=== PATIENT | male | born 1935 | race Caucasian/White ===

== ENCOUNTER 2019-10-02 18:57 | Observation (INO) | payer MEDICARE, OTHER ==
[2019-10-02] MEDS ORDERED: Dextrose 50% Abboject 50 ML SYRINGE ONE (19:26)
[2019-10-02 19:32] LABS: #Eosinphils 0.1 thou/uL (0.0-0.7); #Lymphocytes 1.9 thou/uL (1.20-3.40); #Monocytes 0.9 thou/uL (0.11-0.59); #Neutrophils 5.7 thou/uL (1.40-6.50); %Basophils 0.5 % (0.0-1.0); %Eosinophils 1.6 % (0.0-10.0); %Lymphocytes 21.7 % (21.0-51.0); %Monocytes 10.3 % (0.0-10.0); %Neutrophils 65.9 % (42.0-75.0); Mean Corpuscular HGB CONC 33.5 g/dL (32.0-36.0); Mean Corpuscular Hemoglobin 31.6 pg (27.0-31.0); Mean Corpuscular Volume 94.3 fL (78.0-98.0); Mean Platelet Volume 7.9 fL (7.4-10.4); Platelet Count 175 thou/uL (130-400); RBC Distribution Width 12.3 % (11.5-14.5); Red Blood Cell (RBC) Count 4.11 mill/uL (4.70-6.10); White Blood Cell (WBC) Count 8.6 thou/uL (4.8-10.8)
[2019-10-02 19:54] LABS: ALT (SGPT) 31 U/L (8-55); AST (SGOT) 38 U/L (5-34); Albumin 4.1 g/dL (3.4-4.8); Alkaline Phosphatase 91 U/L (40-110); Anion Gap 14 mmol/L (10-20); BUN (Urea Nitrogen) 35 mg/dL (8.4-25.7); Bilirubin, Total 0.4 mg/dL (0.2-1.2); Calc. Creatinine Clearance 0 mL/min (70-130); Calcium 10.3 mg/dL (7.8-10.44); Carbon Dioxide 28 mmol/L (23-31); Chloride 103 mmol/L (98-107); Estimated GFR-MDRD 23; Globulin 3.9 g/dL (2.4-3.5); Potassium 3.4 mmol/L (3.5-5.1); Sodium 142 mmol/L (136-145)
[2019-10-02 19:59] LABS: Glucose 50 mg/dL (83-110)
--- NOTE | 2019-10-02 20:36 | CT ---
Exam: Head CT without contrast HISTORY: Altered mental status COMPARISON: 10/22/2009 FINDINGS: Hemorrhage: No intraparenchymal hemorrhage or extra-axial hematoma. Brain parenchyma: Cortical appiah-white matter differentiation is preserved. No mass effect or midline shift. Basilar cisterns are patent.Age-appropriate atrophy. Ventricular system: Ventricles and sulci are patent and symmetric. Calvarium: Intact. Sinuses and mastoid air cells: Adequate aeration. IMPRESSION: No acute intracranial process.
[2019-10-02 21:55] LABS: Bacteria/HPF None Seen HPF (None Seen); Bilirubin Negative (Negative); Blood, Urine Trace (Negative); Clarity Clear (Clear); Glucose, Urine (Dipstick) Normal (Negative); Leukocyte Negative Leu/uL (Negative); Nitrite Negative (Negative); Protein, Urine (Dipstick) Negative (Neg-Trace); RBC/HPF 0-3 HPF (0-3); Squamous Epithelial None Seen HPF (0-3); Urobilinogen Normal mg/dL (Less than 2); WBC/HPF 0-3 HPF (0-3)
--- NOTE | 2019-10-02 22:11 | RAD ---
Exam: Chest one view HISTORY:Altered mental status Comparison: 12/12/2009 FINDINGS: Cardiac silhouette:Normal cardiac silhouette. There are sternotomy wires. Left-sided transvenous pace maker with lead positioned over the right atrium, right ventricle and presumably the coronary sinus. Coronary artery stent is noted. Aorta: Unremarkable Pulmonary vessels: Normal Costophrenic angles: Clear LUNGS: Diminished lung volumes, likely due to a poor inspiratory effort. Chronic changes in the lung bases are suspected. No masses or consolidation. No pneumothorax. Pneumothorax: None Osseous abnormalities: None IMPRESSION: 1. Diminished lung volumes, likely due to poor inspiratory effort. 2. No acute cardiopulmonary process.
--- NOTE | 2019-10-03 01:06 | PDOC.FPRHP ---
- History of Present Illness Chief Complaint: ams History of Present Illness: Mr. Anders is an 84 yo male with pmhx sig for CAD, DMII pt is AOx1 without recent memory of events leading to ED visit. Remote memory intact. Family reports earlier this evening he was not responding appropriately , checked his BS which was 50s, given a can of coke. no complaints from pt prior to or in ED reported. family reports pt takes insulin and plavix. - Allergies/Adverse Reactions Allergies Allergy/AdvReac Type Severity Reaction Status Date / Time Penicillins Allergy Verified 10/03/19 02:40 - Home Medications Medication Instructions Recorded Confirmed Type Clopidogrel Bisulfate [Clopidogrel] 1 tab PO DAILY 10/03/19 10/03/19 History Donepezil HCl [Aricept] 10 mg PO HS 10/03/19 10/03/19 History Doxazosin Mesylate 4 mg PO HS 10/03/19 10/03/19 History Isosorbide Mononitrate [Isosorbide 30 mg PO BID 10/03/19 10/03/19 History Mononitrate ER] Losartan [Cozaar] 25 mg PO BID 10/03/19 10/03/19 History Oxybutynin Chloride [Oxybutynin 10 mg PO DAILY 10/03/19 10/03/19 History Chloride ER] Pramipexole Di-HCl [Pramipexole 1 tab PO TID 10/03/19 10/03/19 History Dihydrochloride] Rosuvastatin Calcium 20 mg PO HS 10/03/19 10/03/19 History Sertraline HCl 50 mg PO DAILY 10/03/19 10/03/19 History Spironolactone 1 tab PO PRN PRN 10/03/19 10/03/19 History Torsemide [Demadex] 10 mg PO DAILY 10/03/19 10/03/19 History glipiZIDE [Glipizide] 5 mg PO DAILY 10/03/19 10/03/19 History - History PMHx: HTN, DMII, CAD PSHx: 3v CABG FHx:NC Social:denies TAD - Review of Systems General: denies: fever/chills, weight/appetite/sleep changes Eyes: denies: vision changes Respiratory: denies: cough, shortness of breath Cardiovascular: denies: chest pain, edema Gastrointestinal: denies: nausea, vomiting, diarrhea Genitourinary: denies: dysuria Skin: denies: rashes, lesions Musculoskeletal: denies: pain, tenderness Neurological: denies: numbness, syncope - Vital signs 122/60, MAP: 80, Pulse: 60, Resp: 14, Temp: 94.1 (Rectal), Pain: 0, O2 sat: 97 on (Room Air) - Physical Exam Constitutional: NAD HEENT: normocephalic and atraumatic, grossly normal vision, MMM -HEENT: poor hearing Neck: trachea midline Chest: no-tender to palpation, no lesions Heart: normal S1/S2, no edema, other (NARDA) Lungs: CTAB, no respiratory distress Abdomen: soft, non-tender, bowel sounds present Musculoskeletal: normal structure, normal tone Neurological: no focal deficit, CN II-XII intact Skin: no rash/lesions, good turgor Heme/Lymphatic: no unusual bruising or bleeding Psychiatric: normal mood and affect, other (intact remote memory.) FMR H&P: Results - Labs Result Diagrams: 10/02/19 19:20 10/03/19 01:53 Lab results: WBC 8.6 thou/uL (4.8-10.8) 10/02/19 19:20 Hgb 13.0 g/dL (14.0-18.0) L 10/02/19 19:20 Hct 38.8 % (42.0-52.0) L 10/02/19 19:20 MCV 94.3 fL (78.0-98.0) 10/02/19 19:20 Plt Count 175 thou/uL (130-400) 10/02/19 19:20 Neutrophils % 65.9 % (42.0-75.0) 10/02/19 19:20 Sodium 142 mmol/L (136-145) 10/02/19 19:20 Potassium 3.4 mmol/L (3.5-5.1) L 10/02/19 19:20 Chloride 103 mmol/L (98-107) 10/02/19 19:20 Carbon Dioxide 28 mmol/L (23-31) 10/02/19 19:20 BUN 35 mg/dL (8.4-25.7) H 10/02/19 19:20 Creatinine 2.71 mg/dL (0.7-1.3) H 10/02/19 19:20 Glucose 50 mg/dL (83-110) L* 10/02/19 19:20 Calcium 10.3 mg/dL (7.8-10.44) 10/02/19 19:20 Total Bilirubin 0.4 mg/dL (0.2-1.2) 10/02/19 19:20 AST 38 U/L (5-34) H 10/02/19 19:20 ALT 31 U/L (8-55) 10/02/19 19:20 Alkaline Phosphatase 91 U/L (40-110) 10/02/19 19:20 Serum Total Protein 8.0 g/dL (5.8-8.1) 10/02/19 19:20 Albumin 4.1 g/dL (3.4-4.8) 10/02/19 19:20 Urine Ketones Negative mg/dL (Negative) 10/02/19 21:39 Urine Blood Trace (Negative) A 10/02/19 21:39 Urine Nitrite Negative (Negative) 10/02/19 21:39 Ur Leukocyte Esterase Negative Aidee/uL (Negative) 10/02/19 21:39 Urine RBC 0-3 HPF (0-3) 10/02/19 21:39 Urine WBC 0-3 HPF (0-3) 10/02/19 21:39 Ur Squamous Epith Cells None Seen HPF (0-3) 10/02/19 21:39 Urine Bacteria None Seen HPF (None Seen) 10/02/19 21:39 FMR H&P: A/P - Problem List (1) Acute metabolic encephalopathy due to hypoglycemia Current Visit: Yes Status: Acute Code(s): G93.41 - METABOLIC ENCEPHALOPATHY ; E16.2 - HYPOGLYCEMIA, UNSPECIFIED (2) IDDM (insulin dependent diabetes mellitus) Current Visit: Yes Status: Acute Code(s): OGZ5091 - (3) CAD (coronary artery disease) Current Visit: Yes Status: Acute Code(s): I25.10 - ATHSCL HEART DISEASE OF [place] CORONARY ARTERY W/O ANG PCTRS (4) HONG (acute kidney injury) Current Visit: Yes Status: Acute Code(s): N17.9 - ACUTE KIDNEY FAILURE, UNSPECIFIED - Plan Acute metabolic encephalopathy 2/2 hypoglycemia - given D50 in ED with resulting BS>300 - Mild SSI q4hr accuchecks - hold home insulin HONG - 1L LR, monitor BMP hypoglycemia - improved, mgmt as above hypothermia - rectal temp in ED 94, corrected to 99 - terry hugger in place - CXR wnl, CT head neg, UA wnl, no wbc elevation - procal, TSH, UCx, BCx pending CAD - aware, continue plavix IDDM - mgmt as above 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 Pertinent changes/additions are listed here. Addendum - Attending - Attending Attestation Date/Time: 10/03/19 1302 I personally evaluated the patient and discussed the management with Dr. Lobo. I agree with the History, Examination, Assessment and Plan documented above with any addition or exceptions noted below. Hypoglycemia and hypothermia resolved. HONG slightly worsened but unsure of baseline. continue IV fluids and f/u tomorrow morning. Family concerned he is not mentating as well as normal. Initially thought he could d/c today but given concern by family and change in renal function will monitor today and likely d/ c tomorrow. Holding ARB today.
[2019-10-03] MEDS ORDERED: Dextrose 50% Abboject 50 ML SYRINGE SLOW IVP PRN (01:07)
[2019-10-03] MEDS ORDERED: Acetaminophen 650 MG Suppository PR PRN (01:07)
[2019-10-03] MEDS ORDERED: Ondansetron ODT 4 MG TAB PO PRN (01:07)
[2019-10-03] MEDS ORDERED: Acetaminophen 325 MG TAB PO PRN (01:07)
[2019-10-03] MEDS ORDERED: Ondansetron PF 4 MG/2 ML Vial IVP PRN (01:07)
[2019-10-03] MEDS ORDERED: Dextrose 5% in Water 1,000 ML IV PRN (01:07)
[2019-10-03] MEDS ORDERED: Potassium Chloride 20 MEQ TAB PO SCH (01:15)
[2019-10-03] MEDS ORDERED: Lactated Ringer's 1,000 ML IV SCH ×2 (01:15→13:15)
[2019-10-03 02:06] VITALS: BMI 23.9
[2019-10-03 03:45] LABS: Anion Gap 18 mmol/L (10-20); BUN (Urea Nitrogen) 36 mg/dL (8.4-25.7); Calc. Creatinine Clearance 21 mL/min (70-130); Calcium 9.1 mg/dL (7.8-10.44); Carbon Dioxide 23 mmol/L (23-31); Chloride 100 mmol/L (98-107); Estimated GFR-MDRD 21; Glucose 450 mg/dL (83-110); Potassium 4.4 mmol/L (3.5-5.1); Sodium 137 mmol/L (136-145)
[2019-10-03] MEDS: HumaLOG 300 UNITS/3 ML VIAL SC PRN ×4 (05:17→20:52)
[2019-10-03] MEDS ORDERED: Spironolactone 25 MG TAB PO PRN (06:16)
[2019-10-03] MEDS ORDERED: Torsemide 10 MG TAB PO SCH (09:00)
[2019-10-03 09:55] LABS: Free T4 (Free Thyroxine) 0.91 ng/dL (0.70-1.48)
[2019-10-03] MEDS: Heparin 5,000 UNITS/ML VIAL SC SCH ×3 (10:39→20:58)
[2019-10-03] MEDS: Pramipexole Di-HCl 0.25 MG TAB PO SCH ×3 (10:41→20:57)
[2019-10-03] MEDS: Oxybutynin 5 MG TAB PO SCH (10:41)
[2019-10-03] MEDS: Clopidogrel Bisulfate 75 MG TAB PO SCH (10:41)
[2019-10-03] MEDS: Isosorbide Mononitrate (ER) 30 MG TAB PO SCH ×2 (10:42→20:58)
[2019-10-03] MEDS: Losartan 25 MG TAB PO SCH ×2 (10:42→20:59)
--- NOTE | 2019-10-03 12:56 | DIS ---
DATE OF ADMISSION: 10/03/2019 DATE OF DISCHARGE: 10/04/2019 RESIDENT: Rosalia Whitaker DO., Chris Maxwell MD ADMITTING ATTENDING: Lucien Rodriguez MD. DISCHARGE ATTENDING: Dr. Nilda MD CONSULT: None. PROCEDURES: None. DIAGNOSES: 1. Hypoglycemia. 2. Hypothermia. 3. Acute kidney injury. 4. Acute metabolic encephalopathy secondary to hypoglycemia, improved. 5. Coronary artery disease. 6. Insulin-dependent diabetes mellitus. DISCHARGE MEDICATIONS: 1. Plavix 75 mg p.o. daily. 2. Aricept 10 mg p.o. at bedtime. 3. Doxazosin 4 mg p.o. at bedtime. 4. Isosorbide mononitrate 30 mg p.o. b.i.d. 5. Cozaar 25 mg p.o. b.i.d. 6. Oxybutynin 10 mg p.o. daily. 7. Pramipexole 1 mg tab t.i.d. 8. Rosuvastatin 20 mg p.o. at bedtime. 9. Sertraline 50 mg p.o. daily. 10. Spironolactone 25 mg p.o. p.r.n. 11. Toresmide 10 p.o. daily. 12. Lantus 10 u BID DISCONTINUED MEDICATIOSN: 1. Glipizide 5 mg p.o. daily. 2. Novolog SSI 3. Lantus 25 u BID HISTORY OF PRESENT ILLNESS/HOSPITAL COURSE: Mr. Anders is an 84-year-old gentleman, who came into the emergency department after being found to be hypoglycemic, his blood sugar was 50. He drank a Coca Cola and he was given an amp of D50 and his blood sugar was rechecked and found to be 330. His temperature was originally 94 degrees Fahrenheit. This improved to 99 and then 97 and after being placed on a Lauren Hugger. His TSH was 0.3263 with a free T4 of 0.91 and a free T3 of 2.98. These were both within normal range. We will not treat the TSH, which was just slightly low. Followup in the outpatient setting on TSH in a few weeks. Glucose has maintained higher levels throughout hospitalization. We will resume his home medications once he is calm and eating his normal diet, but at lower dose of lantus 10 u bid from the 25 u bid he was taking. Discontinued glipizide as well. Recommended to the patient to drink plenty of water to help to continue to resolve the HONG and to take his medications as prescribed with healthy diet, he understands this. The pt may have a CKD component which will need to e f/u with PCP in outpt setting. The patient was A sensed and V paced at rate of 70s on telemonitoring overnight. He maintained his temperature as well as blood sugar. He was discharged with new recommendations to d/c glipizide and change lantus dose to 10 n bid without the use of ssi. Disposition is stable. DISCHARGE INSTRUCTIONS: 1. Location: To home. 2. Diet: Consistent carb. 3. Activity: As tolerated. 4. Followup: Follow up with PCP in 3 days' time to repeat a BMP to look at improvement for his HONG and also to check his blood sugar. Job ID: [id number] MTDD
[2019-10-03] MEDS: Sodium Chloride 0.9% 1,000 ML IV SCH ×2 (14:29→21:00)
[2019-10-03] MEDS ORDERED: Donepezil HCl 10 MG TAB PO SCH (21:00)
[2019-10-03] MEDS ORDERED: Doxazosin Mesylate 4 MG TAB PO SCH (21:00)
[2019-10-03] MEDS ORDERED: Rosuvastatin 20 MG TAB PO SCH (21:00)
[2019-10-04 04:46] LABS: Anion Gap 14 mmol/L (10-20); BUN (Urea Nitrogen) 35 mg/dL (8.4-25.7); Calc. Creatinine Clearance 24 mL/min (70-130); Calcium 8.6 mg/dL (7.8-10.44); Carbon Dioxide 25 mmol/L (23-31); Chloride 104 mmol/L (98-107); Estimated GFR-MDRD 25; Glucose 149 mg/dL (83-110); Sodium 139 mmol/L (136-145)
[2019-10-04] MEDS: Pramipexole Di-HCl 0.25 MG TAB PO SCH ×2 (09:12→15:49)
[2019-10-04] MEDS: Oxybutynin 5 MG TAB PO SCH (09:12)
[2019-10-04] MEDS: Losartan 25 MG TAB PO SCH (09:12)
[2019-10-04] MEDS: Isosorbide Mononitrate (ER) 30 MG TAB PO SCH (09:13)
[2019-10-04] MEDS: Heparin 5,000 UNITS/ML VIAL SC SCH ×2 (09:13→15:49)
[2019-10-04] MEDS: Clopidogrel Bisulfate 75 MG TAB PO SCH (09:13)
--- NOTE | 2019-10-04 09:23 | PDOC.FM ---
- Subjective Subjective: Pt resting with no complaints, no new problems. Oriented to person only. - Objective Vital Signs & Weight: Vital Signs (12 hours) Temp Pulse Resp BP BP Pulse Ox 10/04/19 09:11 98.7 F 60 16 107/58 L 93 L 10/04/19 03:31 98 F 60 18 108/58 L 95 Weight Weight 76.657 kg I&O: 10/03/19 10/04/19 10/05/19 06:59 06:59 06:59 Intake Total 1800 2320 Output Total 600 950 Balance 1200 1370 Result Diagrams: 10/02/19 19:20 10/04/19 03:47 Phys Exam - Physical Examination Constitutional: NAD HEENT: moist MMs, sclera anicteric Neck: supple, full ROM Respiratory: no wheezing, clear to auscultation bilateral Cardiovascular: RRR, no significant murmur Gastrointestinal: soft, non-tender Musculoskeletal: pulses present Neurological: normal sensation, moves all 4 limbs Psychiatric: normal affect Deviation from normal: oriented to person Skin: no rash, normal turgor Dx/Plan (1) Acute metabolic encephalopathy due to hypoglycemia Code(s): G93.41 - METABOLIC ENCEPHALOPATHY; E16.2 - HYPOGLYCEMIA, UNSPECIFIED Status: Acute (2) HONG (acute kidney injury) Code(s): N17.9 - ACUTE KIDNEY FAILURE, UNSPECIFIED Status: Acute (3) CAD (coronary artery disease) Code(s): I25.10 - ATHSCL HEART DISEASE OF [place] CORONARY ARTERY W/O ANG PCTRS Status: Acute (4) IDDM (insulin dependent diabetes mellitus) Code(s): HCP0015 - Status: Acute - Plan Plan: Acute metabolic encephalopathy 2/2 hypoglycemia A- resolved. unsure of what home dosing pt has. P- will talk with family to discuss insulin dosing and how to prevent future hypoglycemic events HONG vs. CKD A- Improved, unsure of baseline. P- likely DC with plans for outpt monitoring hypothermia A- Resolved. CXR wnl, CT head neg, UA wnl, no wbc elevation P- UCx, BCx pending, will f/u via friends of service list. 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 Maxwell. I agree with the History, Examination, Assessment and Plan documented above with any addition or exceptions noted below. Patient here for NAZARIO induced hypoglycemia. Improved/Resolved. Mentation improving but may be slow due to setting of dementia. Will discuss with family today but patient is overall stable from medical point for discharge.
[2019-10-04] MEDS: Sodium Chloride 0.9% 1,000 ML IV SCH (12:19)
[2019-10-04 12:21] LABS: Hemoglobin A1c 8.8 % (4.0-6.0)
[2019-10-04 12:39] VITALS: BP 120/56; TEMP 97.8
--- NOTE | 2019-10-06 14:15 | EKG ---
Test Reason : Blood Pressure : / mmHG Vent. Rate : 060 BPM Atrial Rate : 060 BPM P-R Int : 152 ms QRS Dur : 166 ms QT Int : 526 ms P-R-T Axes : 000 069 246 degrees QTc Int : 526 ms AV sequential or dual chamber electronic pacemaker Confirmed by RUFUS SAENZ DO ([id number]), film editor SERGIO ORTA ([id number]) on 10/06/2019 2:15:25 PM Referred By: Confirmed By:RUFUS SAENZ DO
== END 2019-10-04 17:25 | disposition home or self-care (01) ==
LOC: ERS 18:57 → 2NO 10-03 01:25
PROVIDERS: ADMIT Family Medicine; ATTEND Family Medicine
DX: E11.649 Type 2 diabetes mellitus with hypoglycemia without coma (principal); G93.41 Metabolic encephalopathy; T68.XXXA Hypothermia, initial encounter; N17.9 Acute kidney failure, unspecified; I25.10 Atherosclerotic heart disease of native coronary artery without angina pectoris; F03.90 Unspecified dementia, unspecified severity, without behavioral disturbance, psychotic disturbance, mood disturbance, and anxiety; Z79.02 Long term (current) use of antithrombotics/antiplatelets; Z79.4 Long term (current) use of insulin; Z79.899 Other long term (current) drug therapy; Z88.0 Allergy status to penicillin; Z95.1 Presence of aortocoronary bypass graft; Z95.5 Presence of coronary angioplasty implant and graft; Z90.49 Acquired absence of other specified parts of digestive tract
CPT/HCPCS: 70450; 71045; 80048 ×2; 80053; 82962 ×3; 83036; 84145; 84439; 84443; 84481; 85025; 87040; 87086; 93005; 96361 ×2; 96372 ×2; 96374; 99291; G0378 ×3; 36415; 36416; 81003; 81015; J1644

== ENCOUNTER 2020-04-28 22:41 | Inpatient (IN) | payer MEDICARE ==
--- NOTE | 2020-04-29 00:05 | CT ---
Head CT without contrast 04/29/2020: COMPARISON: 10/02/2019 HISTORY: Found unconscious TECHNIQUE: Axial CT imaging at 5 mm intervals from vertex through skull base without contrast FINDINGS: The imaged paranasal sinuses and mastoid air cells are well-aerated. No displaced calvarial fracture. No intracranial hemorrhage, midline shift, mass effect, or ventricular enlargement. Stable volume loss noted in the temporal lobes. There is atherosclerotic calcification of the [place] carotid arteries and distal vertebral arteries. IMPRESSION: Chronic findings as detailed above.
--- NOTE | 2020-04-29 00:10 | RAD ---
Portable frontal chest radiograph: 04/29/2020 COMPARISON: 10/02/2019 HISTORY: Unresponsive FINDINGS: Midline sternotomy wires and mediastinal clips noted. Stable multilead left-sided pacing de vice. Supine imaging provided, limiting assessment for pleural fluid and pneumothorax. Pulmonary vascular c ongestion noted with nonspecific perihilar interstitial prominence. Increased density in the medial left base suggests partial consolidation/collapse of the left lower lobe. Possible small bilateral pl eural effusions. IMPRESSION: Portable chest radiograph as detailed above.
[2020-04-29] MEDS ORDERED: Cefepime 2 GM VIAL ONE (00:17)
[2020-04-29 00:18] LABS: ALT (SGPT) 14 U/L (8-55); AST (SGOT) 17 U/L (5-34); Albumin 2.8 g/dL (3.4-4.8); Alkaline Phosphatase 82 U/L (40-110); Anion Gap 15 mmol/L (10-20); BUN (Urea Nitrogen) 20 mg/dL (8.4-25.7); Bilirubin, Total 0.4 mg/dL (0.2-1.2); Calc. Creatinine Clearance 0 mL/min (70-130); Calcium 8.2 mg/dL (7.8-10.44); Carbon Dioxide 23 mmol/L (23-31); Chloride 102 mmol/L (98-107); Estimated GFR-MDRD 50; Globulin 3.2 g/dL (2.4-3.5); Glucose 176 mg/dL (83-110); Potassium 3.1 mmol/L (3.5-5.1); Sodium 137 mmol/L (136-145)
[2020-04-29 00:37] LABS: Bilirubin Negative (Negative); Blood, Urine Negative (Negative); Clarity Clear (Clear); Glucose, Urine (Dipstick) 200 mg/dL (Negative); Ketone, Urine Negative (Negative); Leukocyte Negative Leu/uL (Negative); Nitrite Negative (Negative); Protein, Urine (Dipstick) Negative (Neg-Trace); Specific Gravity, Urine 1.006 (1.002-1.036); Urobilinogen Normal mg/dL (Less than 2); pH, Urine 5.5 (5.0-9.0)
[2020-04-29 00:40] LABS: CKMB 3.2 ng/mL (0-6.6)
[2020-04-29 01:04] LABS: Hemoglobin 13.5 g/dL (14.0-18.0); Mean Corpuscular HGB CONC 33.6 g/dL (32.0-36.0); Mean Corpuscular Hemoglobin 31.5 pg (27.0-31.0); Mean Corpuscular Volume 93.9 fL (78.0-98.0); RBC Distribution Width 12.1 % (11.5-14.5); Red Blood Cell (RBC) Count 4.29 mill/uL (4.70-6.10); White Blood Cell (WBC) Count 7.2 thou/uL (4.8-10.8)
[2020-04-29] MEDS ORDERED: Potassium Chloride 20 MEQ/100 ML PREMIX BAG ONE (01:16)
[2020-04-29] MEDS ORDERED: Vancomycin 1 GM/200 ML BAG ONE (01:16)
[2020-04-29] MEDS ORDERED: Hydrocortisone Sod Succ/PF 100 mg/2 ml Vial ONE (01:16)
[2020-04-29] MEDS ORDERED: Sodium Chloride 0.9% 1,000 ML IV SCH (01:30)
[2020-04-29 01:34] LABS: #Lymphocytes 0.6 thou/uL (1.20-3.40); #Monocytes 0.5 thou/uL (0.11-0.59); #Neutrophils 6.1 thou/uL (1.40-6.50); %Basophils 0.3 % (0.0-1.0); %Eosinophils 0.6 % (0.0-10.0); %Lymphocytes 7.7 % (21.0-51.0); %Monocytes 7.2 % (0.0-10.0); %Neutrophils 84.3 % (42.0-75.0); Mean Platelet Volume 8.9 fL (7.4-10.4); Platelet Count 118 thou/uL (130-400); Platelet Morphology Comment Appears Decreased
[2020-04-29] MEDS ORDERED: Dextrose 5 % And 0.9 % NaCl 1,000 ML IV SCH (01:45)
--- NOTE | 2020-04-29 02:13 | PDOC.BPN ---
- Brief Progress Note [id number] HP dictated
[2020-04-29 02:43] LABS: #Lymphocytes 0.8 thou/uL (1.20-3.40); #Monocytes 0.5 thou/uL (0.11-0.59); #Neutrophils 8.4 thou/uL (1.40-6.50); %Basophils 0.1 % (0.0-1.0); %Eosinophils 0.3 % (0.0-10.0); %Lymphocytes 8.2 % (21.0-51.0); %Monocytes 5.2 % (0.0-10.0); %Neutrophils 86.3 % (42.0-75.0); Hemoglobin 12.1 g/dL (14.0-18.0); Mean Corpuscular HGB CONC 33.9 g/dL (32.0-36.0); Mean Corpuscular Hemoglobin 31.6 pg (27.0-31.0); Mean Corpuscular Volume 93.2 fL (78.0-98.0); Mean Platelet Volume 7.9 fL (7.4-10.4); Platelet Count 135 thou/uL (130-400); RBC Distribution Width 12.1 % (11.5-14.5); Red Blood Cell (RBC) Count 3.81 mill/uL (4.70-6.10); White Blood Cell (WBC) Count 9.7 thou/uL (4.8-10.8)
[2020-04-29 03:02] LABS: Lactic Acid 1.1 mmol/L (0.5-2.2)
[2020-04-29 03:11] LABS: Troponin I 0.045 ng/mL (< 0.028)
[2020-04-29 03:19] LABS: ALT (SGPT) 12 U/L (8-55); AST (SGOT) 16 U/L (5-34); Albumin 2.4 g/dL (3.4-4.8); Alkaline Phosphatase 67 U/L (40-110); Anion Gap 11 mmol/L (10-20); BUN (Urea Nitrogen) 21 mg/dL (8.4-25.7); Bilirubin, Total 0.4 mg/dL (0.2-1.2); Calc. Creatinine Clearance 0 mL/min (70-130); Calcium 7.4 mg/dL (7.8-10.44); Carbon Dioxide 23 mmol/L (23-31); Chloride 106 mmol/L (98-107); Estimated GFR-MDRD 65; Globulin 2.5 g/dL (2.4-3.5); Glucose 132 mg/dL (83-110); Potassium 3.4 mmol/L (3.5-5.1); Protein, Total 4.9 g/dL (5.8-8.1); Sodium 137 mmol/L (136-145)
--- NOTE | 2020-04-29 04:24 | HP ---
CHIEF COMPLAINT: Altered mental status. HISTORY OF PRESENT ILLNESS: Mr. Anders is an 84-year-old male with past medical history of diabetes mellitus, coronary artery disease, hypertension, coronary artery bypass graft surgery, among others, was brought to the emergency room for altered mental status. Blood sugar was checked which was only 27. Workup in the emergency room, the patient had a lactic acid of 3.5, potassium 3.1, sodium is 137, BUN is 20, creatinine 1.3. WBC count 7.2, hemoglobin 13.5, troponin 0.04. CT of the chest, no acute finding. CT of the brain, chronic findings, nothing acute in the emergency room. Patient was given glucagon by EMS. In the emergency room, the patient became hypotensive and was found to be hypothermic with a temperature of 91. Rewarming started. Potassium replacement started. Blood pressure also dropped and the patient was given IV Solu-Cortef and IV fluid bolus. The patient is more arousable and answering very simple questions now. As per ER physician, the patient is a DNR/DNI. The PRINTING MANAGER also discussed with the patient's son who confirmed the patient's DNR/DNI status. The patient has a septic workup done in the ED. The patient was given broad-spectrum IV antibiotics. The patient is being admitted to the hospital for further management. PAST MEDICAL HISTORY: As mentioned above in the history of present illness. PAST SURGICAL HISTORY: CABG x3. FAMILY HISTORY: Reviewed and noncontributory. SOCIAL HISTORY: Unknown. ALLERGIES: ALLERGIC TO PENICILLIN. REVIEW OF SYSTEMS: Unable to obtain due to patient's underlying medical condition. PHYSICAL EXAMINATION: GENERAL: The patient is lethargic, but easily arousable. He is hard of hearing. VITAL SIGNS: Blood pressure 99/53, pulse is 80, respiratory rate is 11, oxygen saturation 96% on room air. Temperature on presentation 91.2. HEAD AND NECK: Head is normocephalic. Neck is supple. CHEST: Fair bilateral air entry. HEART: Irregular. ABDOMEN: Soft. Bowel sounds present. NEURO: The patient is lethargic, but arousable, but is hard of hearing. PSYCH: Unable to assess. EXTREMITIES: No clubbing or cyanosis. LABORATORY DATA: As mentioned above in history of present illness. IMAGING STUDIES: As mentioned above in history of present illness. ASSESSMENT: 1. Hypoglycemia. 2. Acute encephalopathy, metabolic. 3. Hypothermia. 4. Sepsis? Question cannot be ruled out. 5. Elevated lactic acid. 6. Coronary artery disease with history of coronary artery bypass graft surgery. 7. Diabetes mellitus type 1. 8. Acute hypokalemia. PLAN: 1. Admit. 2. Rewarming started in the emergency room. 3. Septic workup started in the emergency room. 4. IV antibiotics. 5. Monitor blood glucose closely. 6. IV fluids. 7. The patient is DNR/DNI, which was confirmed by ER physician and the ED RN who discussed the case with the patient's son. 8. Potassium replaced in the emergency room. 9. Reconcile home medications. 10. DVT prophylaxis as appropriate. 11. Expected length of stay, 2 midnights or more. Job ID: [id number]
[2020-04-29 07:50] LABS: Troponin I 0.066 ng/mL (< 0.028)
[2020-04-29 08:39] LABS: SARS-CoV-2 MS2 Positive; SARS-CoV-2 N Gene Negative; SARS-CoV-2 S Gene Negative; SARS-CoV-2 by NAA Not Detected (NotDetected); SARS-CoV-2 orf1ab Negative
[2020-04-29] MEDS: Famotidine/PF 20 mg/2ml Vial SLOW IVP SCH ×2 (08:39→21:07)
[2020-04-29] MEDS ORDERED: Enoxaparin Sodium 30 MG/0.3 ML SYRINGE SC SCH (09:00)
[2020-04-29] MEDS ORDERED: Aspirin 325 MG TAB ONE (10:58)
[2020-04-29] MEDS ORDERED: Nitroglycerin 2% Ointment 1 INCH/1 GM Packet ONE (10:58)
[2020-04-29] MEDS ORDERED: Nitroglycerin 2% Ointment 1 INCH/1 GM Packet TOP SCH (11:15)
[2020-04-29] MEDS ORDERED: Morphine 2 MG/ML VIAL SLOW IVP SCH (11:15)
[2020-04-29] MEDS ORDERED: Aspirin 325 MG TAB PO SCH (11:15)
--- NOTE | 2020-04-29 11:17 | PDOC.BPN ---
- Brief Progress Note Encounter Date: 04/29/20 Encounter Time: 11:13 Admitted overnight with AMS and hypoglycemia and yhypothermia with concerns for sepsis Started complaining of chest pain severe 02/16, left sided with sinus tachycardia on tele Trop on admission was 0.66 Will trend trop, start aspirin, nitro and ekg Giving his history of CABG, will start anticoagulation and have cardiology review
[2020-04-29] MEDS ORDERED: Furosemide 40 MG/4 ML VIAL SLOW IVP SCH (11:30)
[2020-04-29] MEDS: Nitroglycerin 0.4 MG TAB (25 Tab Bottle) SL PRN ×3 (12:10→16:49)
[2020-04-29] MEDS: Cefepime 2 GM in Sodium Chloride 0.9% 100 ML IVPB SCH ×2 (12:10→23:48)
[2020-04-29 13:18] LABS: Troponin I 0.102 ng/mL (< 0.028)
[2020-04-29] MEDS ORDERED: Vancomycin 1 GM in Premix Bag 1 BAG IVPB SCH (14:00)
[2020-04-29] MEDS ORDERED: Metoprolol Tartrate 5 MG/5 ML VIAL IVP SCH (14:45)
--- NOTE | 2020-04-29 14:55 | CON ---
DATE OF CONSULTATION: 04/29/2020 REASON FOR CONSULTATION: Atrial fibrillation, previous pacemaker, coronary artery disease, brought in with confusion and hypothermia and hypoglycemia. HISTORY OF PRESENT ILLNESS: Mr. Anders is an 84-year-old man. The patient was brought to the hospital unresponsive, was found to have severe hypoglycemia and hypothermia. He was given intravenous glucose and he is warmed and improved and blood sugar initially was 27. Initially, the patient was unresponsive, now he is responsive. He tells me he is living at home. PAST MEDICAL HISTORY: 1. Previous coronary artery disease with bypass surgery. 2. Previous pacemaker. The patient is on unable to tell me really details of this and is unable to tell me who his clinical researcher is, but he thinks it is probably a [facility] physician. REVIEW OF SYSTEMS: Really not reliable. SOCIAL HISTORY: Unknown. ALLERGIES: TO PENICILLIN. PHYSICAL EXAMINATION: GENERAL: This is an elderly gentleman. He is now awake and alert, very hard of hearing. VITAL SIGNS: Blood pressure 130/80, pulse is 120 and it is irregular. LUNGS: Clear. CARDIAC: Irregular. No murmur, rub, or gallop. ABDOMEN: Soft and nontender. EXTREMITIES: Warm and dry. No clubbing or cyanosis. There is no significant edema. PERTINENT LABORATORY DATA: Troponin 0.1. EKG reveals what looks initially to be an atrial sensed, ventricular paced rhythm, now looks like it is probably underlying atrial fibrillation with ventricular pacing. ASSESSMENT: 1. Underlying coronary artery disease. 2. Looks like he has likely got underlying atrial fibrillation, paroxysmal. 3. Seems to be having some burning in his chest, now probably angina. 4. [id number] myocardial infarction, demand ischemia. 5. The patient's current code status do not resuscitate, do not intubate. 6. Hopefully, records can be obtained. Apparently, his care has been provided at different institution. He thinks it was [facility], but he is not sure. Job ID: [id number]
[2020-04-29] MEDS: Amiodarone 200 MG TAB PO SCH ×2 (15:22→21:07)
[2020-04-29] MEDS: Morphine 2 MG/ML VIAL SLOW IVP PRN (16:58)
[2020-04-29] MEDS ORDERED: Dextrose 50% Abboject 50 ML SYRINGE SLOW IVP PRN (17:17)
[2020-04-29] MEDS ORDERED: Dextrose 5% in Water 1,000 ML IV PRN (17:17)
[2020-04-29] MEDS: HumaLOG 300 UNITS/3 ML VIAL SC PRN ×3 (18:24→23:47)
[2020-04-29] MEDS: Enoxaparin Sodium 80 MG/0.8 ML SYRINGE SC SCH (21:07)
[2020-04-29 21:29] LABS: Troponin I 3.224 ng/mL (< 0.028)
[2020-04-30] MEDS: Vancomycin HCl 1.25 GM in Sodium Chloride 0.9% 250 ML 250 ML IVPB SCH (01:51)
[2020-04-30] MEDS: Amiodarone 200 MG TAB PO SCH ×3 (08:31→20:24)
[2020-04-30] MEDS: Famotidine/PF 20 mg/2ml Vial SLOW IVP SCH ×2 (08:32→20:24)
[2020-04-30] MEDS: Enoxaparin Sodium 80 MG/0.8 ML SYRINGE SC SCH ×2 (08:32→20:24)
[2020-04-30] MEDS ORDERED: Carvedilol 6.25 MG TAB PO SCH (09:00)
[2020-04-30] MEDS: Aspirin 81 mg Enteric Coated Tablet PO SCH (11:28)
[2020-04-30] MEDS: Stress 600 With Zinc 1 TAB PO SCH (11:29)
[2020-04-30] MEDS: Clopidogrel Bisulfate 75 MG TAB PO SCH (11:29)
[2020-04-30] MEDS: Ubidecarenone 50 MG CAP PO SCH (11:29)
[2020-04-30] MEDS: Cefepime 2 GM in Sodium Chloride 0.9% 100 ML IVPB SCH ×2 (11:29→23:49)
[2020-04-30 11:38] LABS: Hemoglobin 13.1 g/dL (14.0-18.0); Platelet Count 179 thou/uL (130-400)
[2020-04-30 11:41] LABS: Hemoglobin 13.3 g/dL (14.0-18.0); Mean Corpuscular Hemoglobin 31.6 pg (27.0-31.0); Mean Corpuscular Volume 95.8 fL (78.0-98.0); Mean Platelet Volume 8.5 fL (7.4-10.4); Platelet Count 177 thou/uL (130-400); Red Blood Cell (RBC) Count 4.21 mill/uL (4.70-6.10); White Blood Cell (WBC) Count 9.2 thou/uL (4.8-10.8)
[2020-04-30 12:01] LABS: Anion Gap 18 mmol/L (10-20); BUN (Urea Nitrogen) 38 mg/dL (8.4-25.7); Calc. Creatinine Clearance 27 mL/min (70-130); Calcium 8.5 mg/dL (7.8-10.44); Carbon Dioxide 20 mmol/L (23-31); Chloride 101 mmol/L (98-107); Estimated GFR-MDRD 29; Glucose 256 mg/dL (83-110); Potassium 4.8 mmol/L (3.5-5.1); Sodium 134 mmol/L (136-145)
[2020-04-30 12:50] LABS: Band 16 % (5-11); Eosinophils 1 % (0-10); Lymphocytes 19 % (21-51); MDiff Complete? YES; Metamyelocyte 2 % (0-0); Monocytes 3 % (0-10); Myelocyte 1 % (0-0); Neutrophil 54 % (42-75); Reactive Lymphocytes 4 % (0-10)
[2020-04-30] MEDS: HumaLOG 300 UNITS/3 ML VIAL SC PRN ×3 (12:52→20:25)
[2020-04-30] MEDS: Morphine 2 MG/ML VIAL SLOW IVP PRN (17:33)
--- NOTE | 2020-04-30 18:54 | PDOC.HOSPP ---
- Subjective Encounter Date: 04/30/20 Encounter Time: 11:00 Subjective: Patient was seen and examined in bed. Overnight he was confused and was try to pull out his catheter after she was restrained. At the time of my evaluation he was still intermittently confused. Telemetry showed A. fib. No ventricular rhythms His blood culture started growing 1 in 2 bottles gram-negative rods. - Objective Vital Signs & Weight: Vital Signs (12 hours) Temp Pulse Resp BP Pulse Ox 04/30/20 15:00 97.7 F 68 20 113/82 96 04/30/20 12:00 97.8 F 70 17 157/74 H 100 04/30/20 07:07 97.9 F 75 18 114/60 94 L Weight Weight 165 lb 14.4 oz I&O: 04/29/20 04/30/20 05/01/20 06:59 06:59 06:59 Intake Total 440 480 Output Total 945 Balance -505 480 Result Diagrams: 04/30/20 11:16 04/30/20 11:16 Additional Labs: Accuchecks 04/30/20 04/30/20 04/30/20 16:11 12:40 07:34 POC Glucose 233 H 273 H 130 H 04/30/20 04/30/20 04/29/20 06:09 03:42 23:43 POC Glucose 136 H 105 H 173 H 04/29/20 21:00 POC Glucose 256 H Hospitalist ROS - Medication Medications: Active Medications Generic Name Dose Route Start Last Admin Trade Name Freq PRN Reason Stop Dose Admin Amiodarone HCl 400 mg 04/29/20 15:00 04/30/20 16:07 Amiodarone 200 Mg Tab PO 400 mg TID WALE Administration Aspirin 81 mg 04/30/20 09:00 04/30/20 11:28 Aspirin 81 Mg Enteric Coated Tablet PO 81 mg DAILY WALE Administration Clopidogrel Bisulfate 75 mg 04/30/20 09:00 04/30/20 11:29 Clopidogrel Bisulfate 75 Mg Tab PO 75 mg DAILY WALE Administration Coenzyme Q10 100 mg 04/30/20 09:00 04/30/20 11:29 Ubidecarenone 50 Mg Cap PO 100 mg DAILY WALE Administration Enoxaparin Sodium 80 mg 04/29/20 21:00 04/30/20 08:32 Enoxaparin Sodium 80 Mg/0.8 Ml Syringe SC 80 mg 0900,2100 WALE Administration Famotidine 20 mg 04/29/20 09:00 04/30/20 08:32 Famotidine/Pf 20 Mg/2ml Vial SLOW IVP 20 mg Q12HR WALE Administration Cefepime HCl 2 gm/ Sodium 100 mls @ 200 mls/hr 04/29/20 12:00 04/30/20 11:29 Chloride IVPB 100 mls 1200,2359 WALE Administration Vancomycin HCl 1.25 gm/ Sodium 250 mls @ 166.667 mls/hr 04/30/20 02:00 04/30/20 01:51 Chloride IVPB 250 mls 0200 WALE Administration Insulin Human Lispro 0 units 04/29/20 17:17 04/30/20 16:15 Humalog 300 Units/3 Ml Vial SC 3 units .MILD SLIDING SCALE PRN Administration Mild Correctional Scale Metoprolol Succinate 25 mg 04/29/20 14:31 04/30/20 08:32 Metoprolol Succinate Xl 25 Mg Tab PO 25 mg DAILY WALE Administration Morphine Sulfate 2 mg 04/29/20 11:30 04/30/20 17:33 Morphine 2 Mg/Ml Vial SLOW IVP 2 mg Q2H PRN Administration Moderate to Severe Pain (6-10) Multivitamins/Zinc 1 tab 04/30/20 09:00 04/30/20 11:29 Stress 600 With Zinc 1 Tab PO 1 tab DAILY WALE Administration Nitroglycerin 0.4 mg 04/29/20 11:53 04/29/20 16:49 Nitroglycerin 0.4 Mg Tab (25 Tab Bottle) SL 1 tablet Q5MIN PRN Administration Chest Pain Sertraline HCl 50 mg 04/30/20 09:00 04/30/20 11:29 Sertraline Hcl 25 Mg Tab PO 50 mg DAILY WALE Administration - Exam General - other findings: Awake, confused. Heart: RRR, no murmur, no gallops, normal peripheral pulses Respiratory: no wheezes, no rales, no ronchi, no tachypnea Gastrointestinal: soft, non-tender, non-distended, normal bowel sounds Extremities: no cyanosis, no clubbing, no edema Neurological: cranial nerve grossly intact Psychiatric - other findings: Oriented to self, not place and time Hosp A/P - Plan This an 84-year-old male patient with a history of coronary artery disease ,Diabetes mellitus hypertension who was admitted on account of altered mental status and hypoglycemia with concerns for sepsis. Severe sepsis Patient currently altered Lactate was three-point 5 repeat came down to 1.1. Started on vancomycin and cefepime Cultures growing 1 out of 2 bottles gram-negative rods today. We will continue antibiotics and follow-up on final culture readings. NSTEMI Troponin elevated with chest pain a day ago Currently on aspirin Plavix and anticoagulation on Lovenox. Cardiology evaluatedappreciate input Continue anticoagulation. A. fib Appears to be new onset Continue anticoagulation for now. Metoprolol for rate control This may be due to sepsis. Delirium The setting of sepsis Gentle restraint and monitoring Reorientation next VT prophylaxisLovenox CODE STATUSDNR. Son to come have hospice discussion with case management tomorrow
[2020-04-30] MEDS: Rosuvastatin 20 MG TAB PO SCH (20:24)
[2020-04-30] MEDS: Donepezil HCl 10 MG TAB PO SCH (20:24)
[2020-04-30] MEDS ORDERED: Lorazepam 2 MG/ML VIAL SLOW IVP SCH (20:30)
[2020-05-01] MEDS: Vancomycin HCl 1.25 GM in Sodium Chloride 0.9% 250 ML 250 ML IVPB SCH (02:20)
[2020-05-01] MEDS: Amiodarone 200 MG TAB PO SCH ×3 (09:35→21:31)
[2020-05-01] MEDS: Ubidecarenone 50 MG CAP PO SCH (09:35)
[2020-05-01] MEDS: Clopidogrel Bisulfate 75 MG TAB PO SCH (09:35)
[2020-05-01] MEDS: Aspirin 81 mg Enteric Coated Tablet PO SCH (09:35)
[2020-05-01] MEDS: Stress 600 With Zinc 1 TAB PO SCH (09:36)
[2020-05-01] MEDS: Famotidine/PF 20 mg/2ml Vial SLOW IVP SCH (09:36)
[2020-05-01] MEDS: Enoxaparin Sodium 80 MG/0.8 ML SYRINGE SC SCH (09:38)
[2020-05-01] MEDS: Cefepime 2 GM in Sodium Chloride 0.9% 100 ML IVPB SCH ×2 (14:54→23:53)
--- NOTE | 2020-05-01 15:45 | PRG ---
DATE OF SERVICE: 05/01/2020 SUBJECTIVE: Mr. Anders is not oriented. He is unable to give me any history. This appears to be his baseline. OBJECTIVE: VITAL SIGNS: Blood pressure 140/70; pulse in the 70 range, it is regular. LUNGS: Clear. CARDIAC: Normal S1, normal S2. ABDOMEN: Soft, nontender. EXTREMITIES: No edema. ASSESSMENT: 1. Congestive heart failure, systolic, acute on chronic, appears stable now. 2. Status post dual-chamber defibrillator with normal function. 3. Coronary artery disease. 4. Atrial fibrillation, paroxysmal, now back in sinus rhythm. PLAN: 1. Reduce amiodarone to 200 mg twice a day. 2. Continue low-dose beta katia. 3. Change from Lovenox to apixaban. 4. Stop aspirin and continue Plavix. From a cardiac standpoint, the patient can be moved to a noncardiac floor. 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 Job ID: [id number]
--- NOTE | 2020-05-01 15:59 | PDOC.PALFU ---
Palliative Care Follow-up Note Please refer to Palliative Care notes in note section. Patient son relays that a referral to [facility] has been done. Palliative Care will follow up 05/02/2020 to assist with OOHDNAR and further assist with transition to hospice.
--- NOTE | 2020-05-01 16:55 | PDOC.HOSPP ---
- Subjective Encounter Date: 05/01/20 Subjective: Patient was seen and examined in bed. He was disoriented and in restraints. No significant events overnight. - Objective Vital Signs & Weight: Vital Signs (12 hours) Temp Pulse Pulse Pulse Resp BP BP 05/01/20 16:13 97.4 F L 60 14 05/01/20 13:15 62 60 137/74 148/67 H 05/01/20 11:10 97.6 F 62 BP Pulse Ox 05/01/20 16:13 118/61 95 05/01/20 13:15 05/01/20 11:10 126/57 L 95 Weight Weight 162 lb 11.2 oz I&O: 04/30/20 05/01/20 05/02/20 06:59 06:59 06:59 Intake Total 440 960 Output Total 945 Balance -505 960 Result Diagrams: 04/30/20 11:16 04/30/20 11:16 Additional Labs: Accuchecks 05/01/20 05/01/20 04/30/20 16:10 05:01 20:16 POC Glucose 278 H 168 H 249 H 04/29/20 00:54 POC Glucose 155 H Hospitalist ROS - Medication Medications: Active Medications Generic Name Dose Route Start Last Admin Trade Name Freq PRN Reason Stop Dose Admin Clopidogrel Bisulfate 75 mg 04/30/20 09:00 05/01/20 09:35 Clopidogrel Bisulfate 75 Mg Tab PO 75 mg DAILY WALE Administration Coenzyme Q10 100 mg 04/30/20 09:00 05/01/20 09:35 Ubidecarenone 50 Mg Cap PO 100 mg DAILY [facility] Administration Donepezil HCl 10 mg 04/30/20 21:00 04/30/20 20:24 Donepezil Hcl 10 Mg Tab PO 10 mg HS WALE Administration Cefepime HCl 2 gm/ Sodium 100 mls @ 200 mls/hr 04/29/20 12:00 05/01/20 14:54 Chloride IVPB 100 mls 1200,2359 WALE Administration Vancomycin HCl 1.25 gm/ Sodium 250 mls @ 166.667 mls/hr 04/30/20 02:00 05/01/20 02:20 Chloride IVPB 250 mls 0200 WALE Administration Insulin Human Lispro 0 units 04/29/20 17:17 04/30/20 20:25 Humalog 300 Units/3 Ml Vial SC 3 units .MILD SLIDING SCALE PRN Administration Mild Correctional Scale Metoprolol Succinate 25 mg 04/29/20 14:31 05/01/20 09:35 Metoprolol Succinate Xl 25 Mg Tab PO 25 mg DAILY [facility] Administration Morphine Sulfate 2 mg 04/29/20 11:30 04/30/20 17:33 Morphine 2 Mg/Ml Vial SLOW IVP 2 mg Q2H PRN Administration Moderate to Severe Pain (6-10) Multivitamins/Zinc 1 tab 04/30/20 09:00 05/01/20 09:36 Stress 600 With Zinc 1 Tab PO 1 tab DAILY [facility] Administration Nitroglycerin 0.4 mg 04/29/20 11:53 04/29/20 16:49 Nitroglycerin 0.4 Mg Tab (25 Tab Bottle) SL 1 tablet Q5MIN PRN Administration Chest Pain Rosuvastatin Calcium 20 mg 04/30/20 21:00 04/30/20 20:24 Rosuvastatin 20 Mg Tab PO 20 mg HS WALE Administration Sertraline HCl 50 mg 04/30/20 09:00 05/01/20 09:35 Sertraline Hcl 25 Mg Tab PO 50 mg DAILY WALE Administration - Exam General - other findings: Awake, not oriented. Heart: RRR, no murmur, no gallops Respiratory: CTAB, no wheezes, no rales, no ronchi Gastrointestinal: soft, non-distended, normal bowel sounds Extremities: no cyanosis, no clubbing, no edema Psychiatric - other findings: Patient not oriented to person place or time. Hosp A/P - Plan This an 84-year-old male patient with a history of coronary artery disease ,Diabetes mellitus hypertension who was admitted on account of altered mental status and hypoglycemia with concerns for sepsis. On admission his blood culture started growing gram-negative rods 1 in 2 bottles and antibiotics was continued of cefepime. On discussion with his son, he was in [place] and admitted recently and on discharge to hospice admission had been made however not follow through. Palliative care was consulted to help we discussed hospice and transition plans. While on admission he had an NSTEMI and cardiology was consultedrecommendations made and signed off. We will continue treatment for sepsis and observe for high progress while hospice plans are being finalized Severe sepsis Patient currently altered Lactate was three-point 5 repeat came down to 1.1. Started on vancomycin and cefepimewe will continue continue cefepime Cultures growing 1 out of 2 bottles gram-negative rods today. We will continue antibiotics and follow-up on final culture readings. NSTEMI Troponin elevated with chest pain a day ago Currently on apixaban. Initial [facility] Cardiology consultappreciate input A. fib Appears to be new onset Continue anticoagulation for now. Metoprolol for rate control This may be due to sepsis. Delirium The setting of sepsis Gentle restraint and monitoring As needed Zyprexa Reorientation VT prophylaxisLovenox change apixaban CODE STATUSDNR.
[2020-05-01] MEDS: HumaLOG 300 UNITS/3 ML VIAL SC PRN (18:17)
[2020-05-01] MEDS ORDERED: Amiodarone 200 MG TAB PO SCH (21:00)
[2020-05-01] MEDS: Rosuvastatin 20 MG TAB PO SCH (21:30)
[2020-05-01] MEDS: Sodium Chloride 0.9% 1,000 ML IV SCH ×2 (21:31→23:56)
[2020-05-01] MEDS: Donepezil HCl 10 MG TAB PO SCH (21:31)
[2020-05-02] MEDS: Vancomycin HCl 1.25 GM in Sodium Chloride 0.9% 250 ML 250 ML IVPB SCH (02:25)
[2020-05-02] MEDS: HumaLOG 300 UNITS/3 ML VIAL SC PRN (05:13)
[2020-05-02] MEDS: Famotidine/PF 20 mg/2ml Vial SLOW IVP SCH (08:36)
[2020-05-02 09:46] LABS: Anion Gap 17 mmol/L (10-20); BUN (Urea Nitrogen) 50 mg/dL (8.4-25.7); Calc. Creatinine Clearance 26 mL/min (70-130); Carbon Dioxide 15 mmol/L (23-31); Chloride 106 mmol/L (98-107); Estimated GFR-MDRD 28; Glucose 162 mg/dL (83-110); Potassium 5.7 mmol/L (3.5-5.1); Sodium 132 mmol/L (136-145)
[2020-05-02] MEDS: Clopidogrel Bisulfate 75 MG TAB PO SCH (10:02)
[2020-05-02] MEDS: Amiodarone 200 MG TAB PO SCH ×3 (10:02→20:11)
[2020-05-02] MEDS: Apixaban 2.5 MG TAB PO SCH ×3 (10:02→20:11)
[2020-05-02] MEDS: Ubidecarenone 50 MG CAP PO SCH (10:03)
[2020-05-02] MEDS: Stress 600 With Zinc 1 TAB PO SCH (10:03)
[2020-05-02] MEDS ORDERED: Sodium Chloride 0.9% 500 ML IV SCH (10:15)
[2020-05-02] MEDS: Sodium Chloride 0.9% 1,000 ML IV SCH ×2 (10:56→20:01)
[2020-05-02] MEDS: OLANZapine 10 MG VIAL IM PRN (11:20)
[2020-05-02] MEDS: Cefepime 2 GM in Sodium Chloride 0.9% 100 ML IVPB SCH ×2 (11:30→23:39)
--- NOTE | 2020-05-02 19:43 | PDOC.HOSPP ---
- Subjective Encounter Date: 05/02/20 Subjective: Seen examined in bed. No significant events overnight. He was in two-point restraint with intermittent agitation. - Objective Vital Signs & Weight: Vital Signs (12 hours) Temp Pulse Resp BP Pulse Ox 05/02/20 19:15 97.5 F L 74 20 145/79 H 95 Weight Admit Weight 162 lb 11.2 oz Weight 162 lb 11.2 oz I&O: 05/01/20 05/02/20 05/03/20 06:59 06:59 06:59 Intake Total 960 1245 1200 Balance 960 1245 1200 Result Diagrams: 04/30/20 11:16 05/02/20 09:09 Additional Labs: Accuchecks 05/02/20 05/02/20 05/02/20 19:22 16:32 11:29 POC Glucose 180 H 189 H 168 H 05/02/20 05/02/20 05/01/20 03:56 02:16 20:59 POC Glucose 177 H 160 H 183 H 05/01/20 05/01/20 09:01 00:10 POC Glucose 184 H 164 H Hospitalist ROS - Medication Medications: Active Medications Generic Name Dose Route Start Last Admin Trade Name Freq PRN Reason Stop Dose Admin Amiodarone HCl 200 mg 05/01/20 21:00 05/02/20 10:02 Amiodarone 200 Mg Tab PO Not Given BID WALE Apixaban 2.5 mg 05/02/20 09:00 05/02/20 10:02 Apixaban 2.5 Mg Tab PO Not Given BID WALE Clopidogrel Bisulfate 75 mg 04/30/20 09:00 05/02/20 10:02 Clopidogrel Bisulfate 75 Mg Tab PO Not Given DAILY WALE Coenzyme Q10 100 mg 04/30/20 09:00 05/02/20 10:03 Ubidecarenone 50 Mg Cap PO Not Given DAILY WALE Donepezil HCl 10 mg 04/30/20 21:00 05/01/20 21:31 Donepezil Hcl 10 Mg Tab PO 10 mg HS WALE Administration Famotidine 20 mg 05/02/20 09:00 05/02/20 08:36 Famotidine/Pf 20 Mg/2ml Vial SLOW IVP 20 mg DAILY WALE Administration Cefepime HCl 2 gm/ Sodium 100 mls @ 200 mls/hr 04/29/20 12:00 05/02/20 11:30 Chloride IVPB 100 mls 1200,2359 WALE Administration Vancomycin HCl 1.25 gm/ Sodium 250 mls @ 166.667 mls/hr 04/30/20 02:00 05/02/20 02:25 Chloride IVPB 250 mls 0200 WALE Administration Sodium Chloride 1,000 mls @ 100 mls/hr 05/02/20 10:06 05/02/20 10:56 Normal Saline 0.9% IV 1,000 mls .Q10H WALE Administration Insulin Human Lispro 0 units 04/29/20 17:17 05/02/20 05:13 Humalog 300 Units/3 Ml Vial SC 2 units .MILD SLIDING SCALE PRN Administration Mild Correctional Scale Metoprolol Succinate 25 mg 04/29/20 14:31 05/02/20 10:02 Metoprolol Succinate Xl 25 Mg Tab PO Not Given DAILY [facility] Morphine Sulfate 2 mg 04/29/20 11:30 04/30/20 17:33 Morphine 2 Mg/Ml Vial SLOW IVP 2 mg Q2H PRN Administration Moderate to Severe Pain (6-10) Multivitamins/Zinc 1 tab 04/30/20 09:00 05/02/20 10:03 Stress 600 With Zinc 1 Tab PO Not Given DAILY [facility] Nitroglycerin 0.4 mg 04/29/20 11:53 04/29/20 16:49 Nitroglycerin 0.4 Mg Tab (25 Tab Bottle) SL 1 tablet Q5MIN PRN Administration Chest Pain Olanzapine 10 mg 05/01/20 13:01 05/02/20 11:20 Olanzapine 10 Mg Vial IM 10 mg TID PRN Administration Agitation Rosuvastatin Calcium 20 mg 04/30/20 21:00 05/01/20 21:30 Rosuvastatin 20 Mg Tab PO 20 mg HS WALE Administration Sertraline HCl 50 mg 04/30/20 09:00 05/02/20 10:02 Sertraline Hcl 25 Mg Tab PO Not Given DAILY [facility] Sodium Chloride 10 ml 04/30/20 20:30 05/01/20 21:31 Flush - Normal Saline 10 Ml Syringe IVF 10 ml PRN PRN Administration Saline Flush - Exam General - other findings: Not oriented. Mild agitation. Heart: RRR, no murmur, no gallops Gastrointestinal: soft, non-tender, non-distended Extremities: no cyanosis, no clubbing, no edema Neurological: no focal deficits Psychiatric - other findings: Not oriented Hosp A/P - Plan This an 84-year-old male patient with a history of coronary artery disease ,Diabetes mellitus hypertension who was admitted on account of altered mental status and hypoglycemia with concerns for sepsis. On admission his blood culture started growing gram-negative rods 1 in 2 bottles and antibiotics was continued of cefepime. On discussion with his son, he was in [place] and admitted recently and on discharge to hospice admission had been made however not follow through. Palliative care was consulted to help we discussed hospice and transition plans. While on admission he had an NSTEMI and cardiology was consultedrecommendations made and signed off. We will continue treatment for sepsis and observe for progress while hospice plans are being finalized Severe sepsis Patient currently altered Lactate was three-point 5 repeat came down to 1.1. Started on vancomycin and cefepimewe will continue continue cefepime Cultures growing 1 out of 2 bottles gram-negative rods today. We will continue antibiotics and follow-up on final culture readings. NSTEMI Troponin elevated with chest pain a day ago Currently on apixaban. Initial L[facility] Cardiology consultappreciate input HONG IV fluid bolus Continue BMP monitoring A. fib Appears to be new onset Continue anticoagulation for now. Metoprolol for rate control This may be due to sepsis. Delirium The setting of sepsis Gentle restraint and monitoring As needed Zyprexa Reorientation Dementia Continue monitoring. VT prophylaxisLovenox change apixaban CODE STATUSDNR.
[2020-05-02] MEDS: Rosuvastatin 20 MG TAB PO SCH ×2 (20:01→20:12)
[2020-05-02] MEDS: Donepezil HCl 10 MG TAB PO SCH ×2 (20:01→20:12)
[2020-05-02 23:41] LABS: Anion Gap 21 mmol/L (10-20); BUN (Urea Nitrogen) 46 mg/dL (8.4-25.7); Calc. Creatinine Clearance 28 mL/min (70-130); Calcium 8.2 mg/dL (7.8-10.44); Carbon Dioxide 13 mmol/L (23-31); Chloride 107 mmol/L (98-107); Estimated GFR-MDRD 31; Glucose 184 mg/dL (83-110); Potassium 4.9 mmol/L (3.5-5.1); Sodium 136 mmol/L (136-145)
[2020-05-03] MEDS: Vancomycin HCl 1.25 GM in Sodium Chloride 0.9% 250 ML 250 ML IVPB SCH (02:34)
[2020-05-03] MEDS ORDERED: Vancomycin 1 GM in Premix Bag 1 BAG IVPB SCH (03:00)
[2020-05-03] MEDS: HumaLOG 300 UNITS/3 ML VIAL SC PRN ×2 (05:12→11:35)
[2020-05-03] MEDS: Sodium Chloride 0.9% 1,000 ML IV SCH ×2 (05:38→05:58)
[2020-05-03] MEDS: Amiodarone 200 MG TAB PO SCH ×2 (08:03→21:11)
[2020-05-03] MEDS: Famotidine/PF 20 mg/2ml Vial SLOW IVP SCH (08:03)
[2020-05-03] MEDS: Clopidogrel Bisulfate 75 MG TAB PO SCH (08:03)
[2020-05-03] MEDS: Apixaban 2.5 MG TAB PO SCH ×2 (08:03→21:11)
[2020-05-03] MEDS: Stress 600 With Zinc 1 TAB PO SCH (08:03)
[2020-05-03] MEDS: Ubidecarenone 50 MG CAP PO SCH (08:04)
[2020-05-03 09:17] LABS: #Eosinphils 0.1 thou/uL (0.0-0.7); #Lymphocytes 1.3 thou/uL (1.20-3.40); #Monocytes 1.4 thou/uL (0.11-0.59); #Neutrophils 7.5 thou/uL (1.40-6.50); %Basophils 0.4 % (0.0-1.0); %Eosinophils 1.3 % (0.0-10.0); %Lymphocytes 12.2 % (21.0-51.0); %Monocytes 13.5 % (0.0-10.0); %Neutrophils 72.6 % (42.0-75.0); Hemoglobin 14.5 g/dL (14.0-18.0); Mean Corpuscular HGB CONC 32.9 g/dL (32.0-36.0); Mean Corpuscular Hemoglobin 31.6 pg (27.0-31.0); Platelet Count 172 thou/uL (130-400); RBC Distribution Width 13.2 % (11.5-14.5); White Blood Cell (WBC) Count 10.4 thou/uL (4.8-10.8)
--- NOTE | 2020-05-03 09:18 | EKG ---
Test Reason : ACP Blood Pressure : / mmHG Vent. Rate : 112 BPM Atrial Rate : 112 BPM P-R Int : 128 ms QRS Dur : 178 ms QT Int : 392 ms P-R-T Axes : 044 109 -50 degrees QTc Int : 535 ms Electronic ventricular pacemaker When compared with ECG of 29-APR-2020 00:38, (Unconfirmed) Vent. rate has increased BY 51 BPM Confirmed by NIURKA RAYO MD ([id number]) on 05/03/2020 9:17:35 AM Referred By: AFFRAM Confirmed By:NIURKA RAYO MD
[2020-05-03 09:20] LABS: Hemoglobin 14.6 g/dL (14.0-18.0); Platelet Count 171 thou/uL (130-400)
[2020-05-03] MEDS: Cefepime 2 GM in Sodium Chloride 0.9% 100 ML IVPB SCH ×2 (11:36→23:40)
[2020-05-03] MEDS: OLANZapine 10 MG VIAL IM PRN (14:26)
[2020-05-03] MEDS: Rosuvastatin 20 MG TAB PO SCH (21:11)
[2020-05-03] MEDS: Donepezil HCl 10 MG TAB PO SCH (21:11)
--- NOTE | 2020-05-03 23:15 | PDOC.HOSPP ---
- Subjective Encounter Date: 05/03/20 Subjective: Patient was seen and examined in bed. He was alert oriented and in two-point restraints. He was unable to answer any of my questions No significant events noted overnight. - Objective Vital Signs & Weight: Vital Signs (12 hours) Temp Pulse Resp BP Pulse Ox 05/03/20 20:00 95 05/03/20 19:23 97.4 F L 77 18 149/81 H 95 Weight Admit Weight 162 lb 11.2 oz Weight 162 lb 14.4 oz I&O: 05/02/20 05/03/20 05/04/20 06:59 06:59 06:59 Intake Total 1245 2400 Balance 1245 2400 Result Diagrams: 05/03/20 08:54 05/03/20 08:54 Additional Labs: Accuchecks 05/03/20 05/03/20 05/03/20 19:28 11:04 07:39 POC Glucose 130 H 201 H 224 H 05/03/20 05/02/20 04:29 23:31 POC Glucose 244 H 192 H Hospitalist ROS - Medication Medications: Active Medications Generic Name Dose Route Start Last Admin Trade Name Freq PRN Reason Stop Dose Admin Amiodarone HCl 200 mg 05/01/20 21:00 05/03/20 21:11 Amiodarone 200 Mg Tab PO 200 mg BID WALE Administration Apixaban 2.5 mg 05/02/20 09:00 05/03/20 21:11 Apixaban 2.5 Mg Tab PO 2.5 mg BID WALE Administration Clopidogrel Bisulfate 75 mg 04/30/20 09:00 05/03/20 08:03 Clopidogrel Bisulfate 75 Mg Tab PO Not Given DAILY [facility] Coenzyme Q10 100 mg 04/30/20 09:00 05/03/20 08:04 Ubidecarenone 50 Mg Cap PO Not Given DAILY [facility] Donepezil HCl 10 mg 04/30/20 21:00 05/03/20 21:11 Donepezil Hcl 10 Mg Tab PO 10 mg HS WALE Administration Famotidine 20 mg 05/02/20 09:00 05/03/20 08:03 Famotidine/Pf 20 Mg/2ml Vial SLOW IVP 20 mg DAILY W[facility] Administration Cefepime HCl 2 gm/ Sodium 100 mls @ 200 mls/hr 04/29/20 12:00 05/03/20 11:36 Chloride IVPB 100 mls 1200,2359 WALE Administration Sodium Chloride 1,000 mls @ 50 mls/hr 05/02/20 10:06 05/03/20 05:58 Normal Saline 0.9% IV Not Given .Q20H WALE Vancomycin HCl 1 gm/ Device 200 mls @ 200 mls/hr 05/03/20 03:00 05/03/20 02:36 IVPB 200 mls 0300 WALE Administration Insulin Human Lispro 0 units 04/29/20 17:17 05/03/20 11:35 Humalog 300 Units/3 Ml Vial SC 3 units .MILD SLIDING SCALE PRN Administration Mild Correctional Scale Metoprolol Succinate 25 mg 04/29/20 14:31 05/03/20 08:03 Metoprolol Succinate Xl 25 Mg Tab PO Not Given DAILY [facility] Morphine Sulfate 2 mg 04/29/20 11:30 04/30/20 17:33 Morphine 2 Mg/Ml Vial SLOW IVP 2 mg Q2H PRN Administration Moderate to Severe Pain (6-10) Multivitamins/Zinc 1 tab 04/30/20 09:00 05/03/20 08:03 Stress 600 With Zinc 1 Tab PO Not Given DAILY [facility] Nitroglycerin 0.4 mg 04/29/20 11:53 04/29/20 16:49 Nitroglycerin 0.4 Mg Tab (25 Tab Bottle) SL 1 tablet Q5MIN PRN Administration Chest Pain Olanzapine 10 mg 05/01/20 13:01 05/03/20 14:26 Olanzapine 10 Mg Vial IM 10 mg TID PRN Administration Agitation Rosuvastatin Calcium 20 mg 04/30/20 21:00 05/03/20 21:11 Rosuvastatin 20 Mg Tab PO 20 mg HS WALE Administration Sertraline HCl 50 mg 04/30/20 09:00 05/03/20 08:03 Sertraline Hcl 25 Mg Tab PO Not Given DAILY [facility] Sodium Chloride 10 ml 04/30/20 20:30 05/01/20 21:31 Flush - Normal Saline 10 Ml Syringe IVF 10 ml PRN PRN Administration Saline Flush - Exam General - other findings: Patient awake however not oriented. Heart: RRR, no murmur, no gallops Respiratory: CTAB, no wheezes, no rales Gastrointestinal: soft, non-distended, normal bowel sounds Extremities: no cyanosis, no clubbing, no edema Neurological: no focal deficits Psychiatric - other findings: Not oriented to person place or time. Hosp A/P - Plan This an 84-year-old male patient with a history of coronary artery disease ,Diabetes mellitus hypertension who was admitted on account of altered mental status and hypoglycemia with concerns for sepsis. On admission his blood culture started growing gram-negative rods 1 in 2 bottles and antibiotics was continued on cefepime. Final culture resulted overnight as bacullus which is a gram positive amy, vancomycin was restarted. Plan to consult ID on the significance of bacullus in on of two cultures and whether antibiotics need to be continued. On discussion with his son, he was in [place] and admitted recently and discharged to hospice however for some reasons he could not follow through. At the moment, case management and palliative care are working out how to reinitiate his hospice status to include the MS Severe sepsis Patient currently altered Lactate was three-point 5 repeat came down to 1.1. Started on vancomycin and cefepimewas continued on cefepime Giving the final culture coming out as bacillus, I will stop vancomycin and change to vancomycin Cultures growing 1 out of 2 bottles gram-negative rods today. We will continue antibiotics and follow-up on final culture readings. NSTEMI Troponin elevated with chest pain on day of admission Currently on metoprolol, apixaban, clopidogrel and rosuvastatin. Cardiology was consulted HONG Improving continue fluids A. fib Appears to be new onset Continue anticoagulation for now. Metoprolol for rate control Continue apixiban Delirium The setting of sepsis Gentle restraint and monitoring As needed Zyprexa Reorientation Severe Dementia Continue monitoring. Working on hospice placement VT prophylaxisLovenox change apixaban CODE STATUSDNR. Hospice discussions ongoing
[2020-05-04] MEDS: Sodium Chloride 0.9% 1,000 ML IV SCH (02:32)
[2020-05-04] MEDS: Vancomycin 1 GM in Premix Bag 1 BAG IVPB SCH (02:32)
[2020-05-04] MEDS: HumaLOG 300 UNITS/3 ML VIAL SC PRN ×3 (05:53→15:59)
[2020-05-04 06:30] LABS: #Eosinphils 0.2 thou/uL (0.0-0.7); #Monocytes 1.3 thou/uL (0.11-0.59); #Neutrophils 6.5 thou/uL (1.40-6.50); %Basophils 0.5 % (0.0-1.0); %Eosinophils 2.7 % (0.0-10.0); %Lymphocytes 10.7 % (21.0-51.0); %Monocytes 13.9 % (0.0-10.0); %Neutrophils 72.1 % (42.0-75.0); Hemoglobin 15.1 g/dL (14.0-18.0); Mean Corpuscular HGB CONC 31.9 g/dL (32.0-36.0); Mean Corpuscular Hemoglobin 31.9 pg (27.0-31.0); Mean Corpuscular Volume 99.8 fL (78.0-98.0); Mean Platelet Volume 9.2 fL (7.4-10.4); Platelet Count 163 thou/uL (130-400); RBC Distribution Width 13.9 % (11.5-14.5); Red Blood Cell (RBC) Count 4.75 mill/uL (4.70-6.10)
[2020-05-04 07:37] LABS: Chloride 113 mmol/L (98-107)
[2020-05-04 07:38] LABS: Calcium 7.7 mg/dL (7.8-10.44); Glucose 213 mg/dL (83-110); Potassium 4.8 mmol/L (3.5-5.1); Sodium 136 mmol/L (136-145)
[2020-05-04 07:40] LABS: Anion Gap 17 mmol/L (10-20); Carbon Dioxide 11 mmol/L (23-31)
[2020-05-04 07:42] LABS: Calc. Creatinine Clearance 35 mL/min (70-130); Estimated GFR-MDRD 37
[2020-05-04 07:43] LABS: BUN (Urea Nitrogen) 36 mg/dL (8.4-25.7)
[2020-05-04] MEDS: Apixaban 2.5 MG TAB PO SCH ×2 (09:35→20:12)
[2020-05-04] MEDS: Stress 600 With Zinc 1 TAB PO SCH (09:35)
[2020-05-04] MEDS: Ubidecarenone 50 MG CAP PO SCH (09:35)
[2020-05-04] MEDS: Clopidogrel Bisulfate 75 MG TAB PO SCH (09:35)
[2020-05-04] MEDS: Amiodarone 200 MG TAB PO SCH ×2 (09:35→20:11)
[2020-05-04] MEDS: Famotidine/PF 20 mg/2ml Vial SLOW IVP SCH (09:36)
[2020-05-04] MEDS: Cefepime 2 GM in Sodium Chloride 0.9% 100 ML IVPB SCH (11:45)
--- NOTE | 2020-05-04 14:01 | PDOC.HOSPP ---
- Subjective Encounter Date: 05/04/20 Encounter Time: 12:00 Subjective: awake, not oriented eating minimal not in distress - Objective Vital Signs & Weight: Vital Signs (12 hours) Temp Pulse Resp BP BP Pulse Ox 05/04/20 12:00 97.5 F L 71 20 152/91 H 98 05/04/20 08:00 96 05/04/20 07:59 97.4 F L 85 20 143/80 H 96 05/04/20 04:00 97.4 F L 99 20 152/92 H 96 Weight Admit Weight 162 lb 11.2 oz Weight 170 lb 3.15 oz I&O: 05/03/20 05/04/20 05/05/20 06:59 06:59 06:59 Intake Total 2400 1140 Balance 2400 1140 Result Diagrams: 05/04/20 06:01 05/04/20 07:07 Additional Labs: Accuchecks 05/04/20 05/04/20 05/03/20 05:28 00:16 19:28 POC Glucose 239 H 195 H 130 H Hospitalist ROS - Medication Medications: Active Medications Generic Name Dose Route Start Last Admin Trade Name Freq PRN Reason Stop Dose Admin Amiodarone HCl 200 mg 05/01/20 21:00 05/04/20 09:35 Amiodarone 200 Mg Tab PO 200 mg BID WALE Administration Apixaban 2.5 mg 05/02/20 09:00 05/04/20 09:35 Apixaban 2.5 Mg Tab PO 2.5 mg BID WALE Administration Clopidogrel Bisulfate 75 mg 04/30/20 09:00 05/04/20 09:35 Clopidogrel Bisulfate 75 Mg Tab PO 75 mg DAILY [facility] Administration Coenzyme Q10 100 mg 04/30/20 09:00 05/04/20 09:35 Ubidecarenone 50 Mg Cap PO 100 mg DAILY [facility] Administration Donepezil HCl 10 mg 04/30/20 21:00 05/03/20 21:11 Donepezil Hcl 10 Mg Tab PO 10 mg HS WALE Administration Famotidine 20 mg 05/02/20 09:00 05/04/20 09:36 Famotidine/Pf 20 Mg/2ml Vial SLOW IVP 20 mg DAILY [facility] Administration Cefepime HCl 2 gm/ Sodium 100 mls @ 200 mls/hr 04/29/20 12:00 05/04/20 11:45 Chloride IVPB 100 mls 1200,2359 WALE Administration Sodium Chloride 1,000 mls @ 50 mls/hr 05/02/20 10:06 05/04/20 02:32 Normal Saline 0.9% IV 1,000 mls .Q20H WALE Administration Vancomycin HCl 1 gm/ Device 200 mls @ 200 mls/hr 05/04/20 03:00 05/04/20 02:32 IVPB 200 mls 0300 WALE Administration Insulin Human Lispro 0 units 04/29/20 17:17 05/04/20 11:47 Humalog 300 Units/3 Ml Vial SC 3 units .MILD SLIDING SCALE PRN Administration Mild Correctional Scale Metoprolol Succinate 25 mg 04/29/20 14:31 05/04/20 09:35 Metoprolol Succinate Xl 25 Mg Tab PO 25 mg DAILY [facility] Administration Morphine Sulfate 2 mg 04/29/20 11:30 04/30/20 17:33 Morphine 2 Mg/Ml Vial SLOW IVP 2 mg Q2H PRN Administration Moderate to Severe Pain (6-10) Multivitamins/Zinc 1 tab 04/30/20 09:00 05/04/20 09:35 Stress 600 With Zinc 1 Tab PO 1 tab DAILY [facility] Administration Nitroglycerin 0.4 mg 04/29/20 11:53 04/29/20 16:49 Nitroglycerin 0.4 Mg Tab (25 Tab Bottle) SL 1 tablet Q5MIN PRN Administration Chest Pain Olanzapine 10 mg 05/01/20 13:01 05/03/20 14:26 Olanzapine 10 Mg Vial IM 10 mg TID PRN Administration Agitation Rosuvastatin Calcium 20 mg 04/30/20 21:00 05/03/20 21:11 Rosuvastatin 20 Mg Tab PO 20 mg HS WALE Administration Sertraline HCl 50 mg 04/30/20 09:00 05/04/20 09:35 Sertraline Hcl 25 Mg Tab PO 50 mg DAILY [facility] Administration Sodium Chloride 10 ml 04/30/20 20:30 05/01/20 21:31 Flush - Normal Saline 10 Ml Syringe IVF 10 ml PRN PRN Administration Saline Flush - Exam General Appearance: awake alert Eye: PERRL, anicteric sclera ENT: no oropharyngeal lesions, moist mucosa Neck: supple, no JVD Heart: RRR, no murmur Respiratory: no wheezes, no rales, rhonchi Gastrointestinal: soft, non-tender, non-distended, normal bowel sounds Extremities: no cyanosis, no edema Neurological: cranial nerve grossly intact, no focal deficits Hosp A/P (1) Sepsis Code(s): A41.9 - SEPSIS, UNSPECIFIED ORGANISM Status: Suspected Qualifiers: Severe sepsis shock status: without septic shock (2) Bacterial infection due to bacillus fragilis Code(s): A49.8 - OTHER BACTERIAL INFECTIONS OF UNSPECIFIED SITE Status: Suspected (3) HTN (hypertension) Code(s): I10 - ESSENTIAL (PRIMARY) HYPERTENSION Status: Chronic Qualifiers: Hypertension type: essential hypertension Qualified Code(s): I10 - Essential (primary) hypertension (4) Dementia Code(s): F03.90 - UNSPECIFIED DEMENTIA WITHOUT BEHAVIORAL DISTURBANCE Status: Suspected Qualifiers: Dementia type: unspecified type Dementia behavioral disturbance: with behavioral disturbance Qualified Code(s): F03.91 - Unspecified dementia with behavioral disturbance (5) CHF (congestive heart failure) Code(s): I50.9 - HEART FAILURE, UNSPECIFIED Status: Chronic Qualifiers: Heart failure type: systolic Heart failure chronicity: chronic Qualified Code(s): I50.22 - Chronic systolic (congestive) heart failure (6) HONG (acute kidney injury) Code(s): N17.9 - ACUTE KIDNEY FAILURE, UNSPECIFIED Status: Acute (7) Acute metabolic encephalopathy due to hypoglycemia Code(s): G93.41 - METABOLIC ENCEPHALOPATHY; E16.2 - HYPOGLYCEMIA, UNSPECIFIED Status: Acute (8) CAD (coronary artery disease) Code(s): I25.10 - ATHSCL HEART DISEASE OF [place] CORONARY ARTERY W/O ANG PCTRS Status: Chronic Qualifiers: Coronary Disease-Associated Artery/Lesion type: [place] artery [place] vs. transplanted heart: [place] heart Associated angina: without angina Qualified Code(s): I25.10 - Atherosclerotic heart disease of [place] coronary artery without angina pectoris (9) IDDM (insulin dependent diabetes mellitus) Code(s): LYT7755 - Status: Chronic - Plan is on vanc and cefepime, ID consult will get CT abd wo contrast, serum bicarb is low as well, to r/o intra abdominal abscess? encourage po intake continue eliquis, plavix, aricept, toprol xl, zyprexa, crestor and zoloft PT eval will need placement renal function is slowly trending down
[2020-05-04] MEDS: OLANZapine 10 MG VIAL IM PRN (15:53)
[2020-05-04] MEDS: Rosuvastatin 20 MG TAB PO SCH (20:12)
[2020-05-04] MEDS: Donepezil HCl 10 MG TAB PO SCH (20:12)
[2020-05-05] MEDS: Sodium Chloride 0.9% 1,000 ML IV SCH (00:05)
[2020-05-05] MEDS: Cefepime 2 GM in Sodium Chloride 0.9% 100 ML IVPB SCH (00:06)
[2020-05-05 02:18] LABS: Vancomycin, Trough 19.6 ug/mL
[2020-05-05] MEDS: Vancomycin 1 GM in Premix Bag 1 BAG IVPB SCH (02:55)
[2020-05-05] MEDS: HumaLOG 300 UNITS/3 ML VIAL SC PRN ×2 (04:49→21:39)
[2020-05-05] MEDS: Famotidine/PF 20 mg/2ml Vial SLOW IVP SCH (07:59)
[2020-05-05] MEDS: Stress 600 With Zinc 1 TAB PO SCH (07:59)
[2020-05-05] MEDS: Ubidecarenone 50 MG CAP PO SCH (07:59)
[2020-05-05] MEDS: Amiodarone 200 MG TAB PO SCH ×2 (07:59→21:39)
--- NOTE | 2020-05-05 09:26 | CT ---
CT ABDOMEN AND PELVIS WITHOUT CONTRAST: HISTORY: Concern for abdominal abscess. Bacteremia. FINDINGS: Absence of oral and IV contrast reduces the sensitivity of the exam, particularly for evaluation of s olid organs involved. Moderate to large bilateral pleural effusions are seen with adjacent atelectatic changes. No calcifi ed gallstones are noted. No free air or free fluid is seen in the abdomen or pelvis. No calculi are noted in the kidneys, ureters, or the urinary bladder. No hydroureteral nephrosis is noted on eithe r side. The small bowel loops are not abnormally dilated. No definite loculated fluid collection is seen to suggest abscess formation. There is edema in the subcutaneous fat. Vascular calcifications are present without evidence of aneurysmal dilatation of the abdominal aorta. There are degenerativ e changes in the spine. IMPRESSION: 1. Bilateral pleural effusions. 2. No CT evidence of urinary tract calculi or obstruction. 3. No definite evidence of abscess formation. POS: [facility]
--- NOTE | 2020-05-05 15:56 | PDOC.HOSPP ---
- Subjective Encounter Date: 05/05/20 Encounter Time: 08:15 Subjective: awakens easily, not oriented - Objective Vital Signs & Weight: Vital Signs (12 hours) Temp Pulse Resp BP Pulse Ox 05/05/20 08:00 94 L 05/05/20 07:17 97.5 F L 75 22 H 157/77 H 94 L 05/05/20 04:22 97.8 F 74 18 149/81 H 100 Weight Admit Weight 162 lb 11.2 oz Weight 169 lb 1.513 oz I&O: 05/04/20 05/05/20 05/06/20 06:59 06:59 06:59 Intake Total 1140 1989 Balance 1140 1989 Result Diagrams: 05/04/20 06:01 05/04/20 07:07 Additional Labs: Accuchecks 05/05/20 05/05/20 05/04/20 11:20 04:18 19:35 POC Glucose 218 H 239 H 176 H 05/04/20 15:55 POC Glucose 284 H Hospitalist ROS - Medication Medications: Active Medications Generic Name Dose Route Start Last Admin Trade Name Freq PRN Reason Stop Dose Admin Amiodarone HCl 200 mg 05/01/20 21:00 05/05/20 07:59 Amiodarone 200 Mg Tab PO 200 mg BID WALE Administration Coenzyme Q10 100 mg 04/30/20 09:00 05/05/20 07:59 Ubidecarenone 50 Mg Cap PO 100 mg DAILY WALE Administration Donepezil HCl 10 mg 04/30/20 21:00 05/04/20 20:12 Donepezil Hcl 10 Mg Tab PO 10 mg HS WALE Administration Insulin Human Lispro 0 units 04/29/20 17:17 05/05/20 04:49 Humalog 300 Units/3 Ml Vial SC 3 units .MILD SLIDING SCALE PRN Administration Mild Correctional Scale Metoprolol Succinate 25 mg 04/29/20 14:31 05/05/20 07:59 Metoprolol Succinate Xl 25 Mg Tab PO 25 mg DAILY WALE Administration Morphine Sulfate 2 mg 04/29/20 11:30 04/30/20 17:33 Morphine 2 Mg/Ml Vial SLOW IVP 2 mg Q2H PRN Administration Moderate to Severe Pain (6-10) Multivitamins/Zinc 1 tab 04/30/20 09:00 05/05/20 07:59 Stress 600 With Zinc 1 Tab PO 1 tab DAILY WALE Administration Nitroglycerin 0.4 mg 04/29/20 11:53 04/29/20 16:49 Nitroglycerin 0.4 Mg Tab (25 Tab Bottle) SL 1 tablet Q5MIN PRN Administration Chest Pain Olanzapine 10 mg 05/01/20 13:01 05/04/20 15:53 Olanzapine 10 Mg Vial IM 10 mg TID PRN Administration Agitation Rosuvastatin Calcium 20 mg 04/30/20 21:00 05/04/20 20:12 Rosuvastatin 20 Mg Tab PO 20 mg HS WALE Administration Sertraline HCl 50 mg 04/30/20 09:00 05/05/20 07:59 Sertraline Hcl 25 Mg Tab PO 50 mg DAILY WALE Administration Sodium Chloride 10 ml 04/30/20 20:30 05/01/20 21:31 Flush - Normal Saline 10 Ml Syringe IVF 10 ml PRN PRN Administration Saline Flush - Exam General Appearance: ill appearing Eye: PERRL, anicteric sclera ENT: no oropharyngeal lesions, dry oral mucosa Neck: supple, no JVD Heart: RRR, no murmur Respiratory: no wheezes, no rales, rhonchi Gastrointestinal: soft, non-tender, non-distended, normal bowel sounds Extremities: no cyanosis, no edema Neurological: cranial nerve grossly intact, no focal deficits Hosp A/P (1) Sepsis Code(s): A41.9 - SEPSIS, UNSPECIFIED ORGANISM Status: Suspected Qualifiers: Severe sepsis shock status: without septic shock (2) Bacterial infection due to bacillus fragilis Code(s): A49.8 - OTHER BACTERIAL INFECTIONS OF UNSPECIFIED SITE Status: Suspected (3) HTN (hypertension) Code(s): I10 - ESSENTIAL (PRIMARY) HYPERTENSION Status: Chronic Qualifiers: Hypertension type: essential hypertension Qualified Code(s): I10 - Essential (primary) hypertension (4) Dementia Code(s): F03.90 - UNSPECIFIED DEMENTIA WITHOUT BEHAVIORAL DISTURBANCE Status: Chronic Qualifiers: Dementia type: unspecified type Dementia behavioral disturbance: with behavioral disturbance Qualified Code(s): F03.91 - Unspecified dementia with behavioral disturbance (5) CHF (congestive heart failure) Code(s): I50.9 - HEART FAILURE, UNSPECIFIED Status: Chronic Qualifiers: Heart failure type: systolic Heart failure chronicity: chronic Qualified Code(s): I50.22 - Chronic systolic (congestive) heart failure (6) HONG (acute kidney injury) Code(s): N17.9 - ACUTE KIDNEY FAILURE, UNSPECIFIED Status: Acute (7) Acute metabolic encephalopathy due to hypoglycemia Code(s): G93.41 - METABOLIC ENCEPHALOPATHY; E16.2 - HYPOGLYCEMIA, UNSPECIFIED Status: Acute (8) CAD (coronary artery disease) Code(s): I25.10 - ATHSCL HEART DISEASE OF [place] CORONARY ARTERY W/O ANG PCTRS Status: Chronic Qualifiers: Coronary Disease-Associated Artery/Lesion type: [place] artery [place] vs. transplanted heart: [place] heart Associated angina: without angina Qualified Code(s): I25.10 - Atherosclerotic heart disease of [place] coronary artery without angina pectoris (9) IDDM (insulin dependent diabetes mellitus) Code(s): [id number] - Status: Chronic - Plan d/w son , he wants comfort measures to be initiated and hospice eval for dc plan CT abd wo contrast results noted encourage po intake continue aricept, toprol xl, zyprexa, crestor and zoloft PT eval will need placement with hospice or inpt hospice if he qualifies, is eating poorly renal function is slowly trending down
[2020-05-05 16:32] LABS: #Eosinphils 0.4 thou/uL (0.0-0.7); #Lymphocytes 1.5 thou/uL (1.20-3.40); #Monocytes 1.2 thou/uL (0.11-0.59); #Neutrophils 7.3 thou/uL (1.40-6.50); %Basophils 0.2 % (0.0-1.0); %Eosinophils 3.4 % (0.0-10.0); %Lymphocytes 14.3 % (21.0-51.0); %Monocytes 11.3 % (0.0-10.0); %Neutrophils 70.8 % (42.0-75.0); Hemoglobin 15.9 g/dL (14.0-18.0); Mean Corpuscular Hemoglobin 32.7 pg (27.0-31.0); Mean Corpuscular Volume 95.9 fL (78.0-98.0); Mean Platelet Volume 8.6 fL (7.4-10.4); Platelet Count 191 thou/uL (130-400); RBC Distribution Width 13.9 % (11.5-14.5); Red Blood Cell (RBC) Count 4.85 mill/uL (4.70-6.10); White Blood Cell (WBC) Count 10.3 thou/uL (4.8-10.8)
[2020-05-05 16:43] LABS: Anion Gap 17 mmol/L (10-20); BUN (Urea Nitrogen) 29 mg/dL (8.4-25.7); Calc. Creatinine Clearance 32 mL/min (70-130); Calcium 8.8 mg/dL (7.8-10.44); Carbon Dioxide 19 mmol/L (23-31); Chloride 107 mmol/L (98-107); Estimated GFR-MDRD 35; Glucose 239 mg/dL (83-110); Potassium 4.2 mmol/L (3.5-5.1); Sodium 139 mmol/L (136-145)
[2020-05-05] MEDS: Donepezil HCl 10 MG TAB PO SCH (21:39)
[2020-05-05] MEDS: Rosuvastatin 20 MG TAB PO SCH (21:39)
[2020-05-06] MEDS: Morphine 2 MG/ML VIAL SLOW IVP PRN (01:02)
[2020-05-06] MEDS: HumaLOG 300 UNITS/3 ML VIAL SC PRN ×3 (05:05→16:25)
[2020-05-06 06:37] LABS: Glucose 226 mg/dL (83-110)
[2020-05-06 06:39] LABS: Carbon Dioxide 14 mmol/L (23-31)
[2020-05-06 06:41] LABS: BUN (Urea Nitrogen) 29 mg/dL (8.4-25.7); Calc. Creatinine Clearance 34 mL/min (70-130); Estimated GFR-MDRD 37
[2020-05-06 06:48] LABS: Anion Gap 19 mmol/L (10-20)
[2020-05-06 06:50] LABS: Calcium 8.4 mg/dL (7.8-10.44); Chloride 110 mmol/L (98-107); Potassium 4.7 mmol/L (3.5-5.1); Sodium 136 mmol/L (136-145)
[2020-05-06] MEDS: Stress 600 With Zinc 1 TAB PO SCH (08:02)
[2020-05-06] MEDS: Amiodarone 200 MG TAB PO SCH ×2 (08:03→20:35)
[2020-05-06] MEDS: Ubidecarenone 50 MG CAP PO SCH (09:59)
--- NOTE | 2020-05-06 11:02 | PDOC.HOSPP ---
- Subjective Encounter Date: 05/06/20 Encounter Time: 09:15 Subjective: awakens to touch, not oriented is eating some not much not in distress - Objective Vital Signs & Weight: Vital Signs (12 hours) Temp Pulse Resp BP Pulse Ox 05/06/20 08:00 97.5 F L 71 20 146/82 H 97 05/06/20 05:14 73 20 100 Weight Admit Weight 162 lb 11.2 oz Weight 170 lb 3.15 oz I&O: 05/05/20 05/06/20 05/07/20 06:59 06:59 06:59 Intake Total 1989 680 Output Total 1 Balance 1989 679 Result Diagrams: 05/05/20 16:01 05/06/20 05:55 Additional Labs: Accuchecks 05/06/20 05/05/20 05/05/20 04:57 19:10 16:09 POC Glucose 217 H 243 H 228 H 05/05/20 11:20 POC Glucose 218 H Hospitalist ROS - Medication Medications: Active Medications Generic Name Dose Route Start Last Admin Trade Name Dexterq PRN Reason Stop Dose Admin Amiodarone HCl 200 mg 05/01/20 21:00 05/06/20 08:03 Amiodarone 200 Mg Tab PO 200 mg BID WALE Administration Coenzyme Q10 100 mg 04/30/20 09:00 05/06/20 09:59 Ubidecarenone 50 Mg Cap PO 100 mg DAILY WALE Administration Donepezil HCl 10 mg 04/30/20 21:00 05/05/20 21:39 Donepezil Hcl 10 Mg Tab PO 10 mg HS WALE Administration Insulin Human Lispro 0 units 04/29/20 17:17 05/06/20 05:05 Humalog 300 Units/3 Ml Vial SC 3 units .MILD SLIDING SCALE PRN Administration Mild Correctional Scale Metoprolol Succinate 25 mg 04/29/20 14:31 05/06/20 08:03 Metoprolol Succinate Xl 25 Mg Tab PO 25 mg DAILY WALE Administration Morphine Sulfate 2 mg 04/29/20 11:30 05/06/20 01:02 Morphine 2 Mg/Ml Vial SLOW IVP 2 mg Q2H PRN Administration Moderate to Severe Pain (6-10) Multivitamins/Zinc 1 tab 04/30/20 09:00 05/06/20 08:02 Stress 600 With Zinc 1 Tab PO 1 tab DAILY WALE Administration Nitroglycerin 0.4 mg 04/29/20 11:53 04/29/20 16:49 Nitroglycerin 0.4 Mg Tab (25 Tab Bottle) SL 1 tablet Q5MIN PRN Administration Chest Pain Olanzapine 10 mg 05/01/20 13:01 05/04/20 15:53 Olanzapine 10 Mg Vial IM 10 mg TID PRN Administration Agitation Rosuvastatin Calcium 20 mg 04/30/20 21:00 05/05/20 21:39 Rosuvastatin 20 Mg Tab PO 20 mg HS WALE Administration Sertraline HCl 50 mg 04/30/20 09:00 05/06/20 08:03 Sertraline Hcl 25 Mg Tab PO 50 mg DAILY WALE Administration Sodium Chloride 10 ml 04/30/20 20:30 05/01/20 21:31 Flush - Normal Saline 10 Ml Syringe IVF 10 ml PRN PRN Administration Saline Flush - Exam General Appearance: ill appearing Eye: PERRL, anicteric sclera ENT: no oropharyngeal lesions, moist mucosa Neck: supple, no JVD Heart: RRR, no murmur Respiratory: no wheezes, no rales Gastrointestinal: soft, non-tender, non-distended, normal bowel sounds Extremities: no cyanosis, no edema Neurological: cranial nerve grossly intact, no focal deficits Hosp A/P (1) Sepsis Code(s): A41.9 - SEPSIS, UNSPECIFIED ORGANISM Status: Resolved Qualifiers: Severe sepsis shock status: without septic shock (2) Bacterial infection due to bacillus fragilis Code(s): A49.8 - OTHER BACTERIAL INFECTIONS OF UNSPECIFIED SITE Status: Suspected (3) HTN (hypertension) Code(s): I10 - ESSENTIAL (PRIMARY) HYPERTENSION Status: Chronic Qualifiers: Hypertension type: essential hypertension Qualified Code(s): I10 - Essential (primary) hypertension (4) Dementia Code(s): F03.90 - UNSPECIFIED DEMENTIA WITHOUT BEHAVIORAL DISTURBANCE Status: Chronic Qualifiers: Dementia type: unspecified type Dementia behavioral disturbance: with behavioral disturbance Qualified Code(s): F03.91 - Unspecified dementia with behavioral disturbance (5) CHF (congestive heart failure) Code(s): I50.9 - HEART FAILURE, UNSPECIFIED Status: Chronic Qualifiers: Heart failure type: systolic Heart failure chronicity: chronic Qualified Code(s): I50.22 - Chronic systolic (congestive) heart failure (6) HONG (acute kidney injury) Code(s): N17.9 - ACUTE KIDNEY FAILURE, UNSPECIFIED Status: Acute (7) Acute metabolic encephalopathy due to hypoglycemia Code(s): G93.41 - METABOLIC ENCEPHALOPATHY; E16.2 - HYPOGLYCEMIA, UNSPECIFIED Status: Acute (8) CAD (coronary artery disease) Code(s): I25.10 - ATHSCL HEART DISEASE OF [place] CORONARY ARTERY W/O ANG PCTRS Status: Chronic Qualifiers: Coronary Disease-Associated Artery/Lesion type: [place] artery [place] vs. transplanted heart: [place] heart Associated angina: without angina Qualified Code(s): I25.10 - Atherosclerotic heart disease of [place] coronary artery without angina pectoris (9) IDDM (insulin dependent diabetes mellitus) Code(s): [id number] - Status: Chronic - Plan d/w son , he wants comfort measures to be initiated and hospice eval for dc plan (05/05) CT abd wo contrast results noted encourage po intake continue aricept, toprol xl, zyprexa, crestor and zoloft PT eval will need placement with hospice or inpt hospice if he qualifies, is eating poorly renal function is slowly trending down off all antibiotics now
[2020-05-06] MEDS: Rosuvastatin 20 MG TAB PO SCH (20:35)
[2020-05-06] MEDS: Donepezil HCl 10 MG TAB PO SCH (20:36)
[2020-05-07] MEDS: HumaLOG 300 UNITS/3 ML VIAL SC PRN ×3 (06:00→17:20)
[2020-05-07 07:29] LABS: Anion Gap 18 mmol/L (10-20); BUN (Urea Nitrogen) 32 mg/dL (8.4-25.7); Calc. Creatinine Clearance 33 mL/min (70-130); Calcium 8.6 mg/dL (7.8-10.44); Carbon Dioxide 16 mmol/L (23-31); Chloride 108 mmol/L (98-107); Estimated GFR-MDRD 36; Glucose 222 mg/dL (83-110); Potassium 4.1 mmol/L (3.5-5.1); Sodium 138 mmol/L (136-145)
[2020-05-07] MEDS: Ubidecarenone 50 MG CAP PO SCH (08:07)
[2020-05-07] MEDS: Amiodarone 200 MG TAB PO SCH ×2 (08:08→20:48)
[2020-05-07] MEDS: Stress 600 With Zinc 1 TAB PO SCH (08:08)
[2020-05-07] MEDS: Insulin Glargine 10 UNITS in Pre-Filled Syringe 1 EACH SC SCH (09:23)
--- NOTE | 2020-05-07 11:34 | PDOC.HOSPP ---
- Subjective Encounter Date: 05/07/20 Encounter Time: 09:15 Subjective: no complaints, ambulates with help ate his breakfast well but not much of dinner last night - Objective Vital Signs & Weight: Vital Signs (12 hours) Temp Pulse Resp BP Pulse Ox 05/07/20 07:49 97.6 F 71 20 138/79 99 05/07/20 04:20 97.6 F 70 24 H 151/78 H 97 05/06/20 23:50 96.2 F L 68 20 145/81 H 95 Weight Admit Weight 162 lb 11.2 oz Weight 167 lb 14.4 oz I&O: 05/06/20 05/07/20 05/08/20 06:59 06:59 06:59 Intake Total 680 1000 Output Total 1 Balance 679 1000 Result Diagrams: 05/05/20 16:01 05/07/20 06:33 Additional Labs: Accuchecks 05/07/20 05/06/20 05/06/20 04:31 19:48 16:19 POC Glucose 228 H 204 H 301 H Hospitalist ROS - Medication Medications: Active Medications Generic Name Dose Route Start Last Admin Trade Name Freq PRN Reason Stop Dose Admin Amiodarone HCl 200 mg 05/01/20 21:00 05/07/20 08:08 Amiodarone 200 Mg Tab PO 200 mg BID WALE Administration Coenzyme Q10 100 mg 04/30/20 09:00 05/07/20 08:07 Ubidecarenone 50 Mg Cap PO 100 mg DAILY WALE Administration Donepezil HCl 10 mg 04/30/20 21:00 05/06/20 20:36 Donepezil Hcl 10 Mg Tab PO 10 mg HS WALE Administration Insulin Glargine 10 units/ 0.1 mls @ 0 mls/hr 05/07/20 09:00 05/07/20 09:23 Miscellaneous Medication SC 0.1 mls QAM WALE Administration Insulin Human Lispro 0 units 04/29/20 17:17 05/07/20 06:00 Humalog 300 Units/3 Ml Vial SC 3 units .MILD SLIDING SCALE PRN Administration Mild Correctional Scale Metoprolol Succinate 25 mg 04/29/20 14:31 05/07/20 08:08 Metoprolol Succinate Xl 25 Mg Tab PO 25 mg DAILY WALE Administration Morphine Sulfate 2 mg 04/29/20 11:30 05/06/20 01:02 Morphine 2 Mg/Ml Vial SLOW IVP 2 mg Q2H PRN Administration Moderate to Severe Pain (6-10) Multivitamins/Zinc 1 tab 04/30/20 09:00 05/07/20 08:08 Stress 600 With Zinc 1 Tab PO 1 tab DAILY WALE Administration Nitroglycerin 0.4 mg 04/29/20 11:53 04/29/20 16:49 Nitroglycerin 0.4 Mg Tab (25 Tab Bottle) SL 1 tablet Q5MIN PRN Administration Chest Pain Olanzapine 10 mg 05/01/20 13:01 05/04/20 15:53 Olanzapine 10 Mg Vial IM 10 mg TID PRN Administration Agitation Rosuvastatin Calcium 20 mg 04/30/20 21:00 05/06/20 20:35 Rosuvastatin 20 Mg Tab PO 20 mg HS WALE Administration Sertraline HCl 50 mg 04/30/20 09:00 05/07/20 08:08 Sertraline Hcl 25 Mg Tab PO 50 mg DAILY WALE Administration Sodium Chloride 10 ml 04/30/20 20:30 05/07/20 08:08 Flush - Normal Saline 10 Ml Syringe IVF 10 ml PRN PRN Administration Saline Flush - Exam General Appearance: awake alert Eye: PERRL, anicteric sclera ENT: no oropharyngeal lesions, moist mucosa Neck: supple, no JVD Heart: RRR, no murmur Respiratory: no wheezes, no rales Gastrointestinal: soft, non-tender, non-distended, normal bowel sounds Extremities: no cyanosis, no edema Neurological: cranial nerve grossly intact, no focal deficits Hosp A/P (1) Sepsis Code(s): A41.9 - SEPSIS, UNSPECIFIED ORGANISM Status: Resolved Qualifiers: Severe sepsis shock status: without septic shock (2) Bacterial infection due to bacillus fragilis Code(s): A49.8 - OTHER BACTERIAL INFECTIONS OF UNSPECIFIED SITE Status: Suspe cted (3) HTN (hypertension) Code(s): I10 - ESSENTIAL (PRIMARY) HYPERTENSION Status: Chronic Qualifiers: Hypertension type: essential hypertension Qualified Code(s): I10 - E ssential (primary) hypertension (4) Dementia Code(s): F03.90 - UNSPECIFIED DEMENTIA WITHOUT BEHAVIORAL DISTURBANCE Status: Chronic Qualifiers: Dementia type: unspecified type Dementia behavioral disturbance: with behavioral disturbance Qualified Code(s): F03.91 - Unspecified dementia with behavioral disturbance (5) CHF (congestive heart failure) Code(s): I50.9 - HEART FAILURE, UNSPECIFIED Status: Chronic Qualifiers: Heart failure type: systolic Heart failure chronicity: chronic Qualified Code(s): I50.22 - Chronic systolic (congestive) heart failure (6) HONG (acute kidney injury) Code(s): N17.9 - ACUTE KIDNEY FAILURE, UNSPECIFIED Status: Acute (7) Acute metabolic encephalopathy due to hypoglycemia Code(s): G93.41 - METABOLIC ENCEPHALOPATHY; E16.2 - HYPOGLYCEMIA, UNSPECIFIED Status: Resolved (8) CAD (coronary artery disease) Code(s): I25.10 - ATHSCL HEART DISEASE OF [place] CORONARY ARTERY W/O ANG PCTRS Status: Chronic Qualifiers: Coronary Disease-Associated Artery/Lesion type: [place] artery [place] vs. transplanted heart: [place] heart Associated angina: without angina Qualified Code(s): I25.10 - Atherosclerotic heart disease of [place] coronary artery witho ut angina pectoris (9) IDDM (insulin dependent diabetes mellitus) Code(s): [id number] - Status: Chronic - Plan d/w son , he wants comfort measures to be initiated and hospice eval for dc plan (05/05) CT abd wo contrast results noted encourage po intake continue aricept, toprol xl, zyprexa, crestor and zoloft to mobilize as tolerated with PT will need placement with hospice renal function is slowly trending down off all antibiotics now may dc anytime placement is ready
[2020-05-07] MEDS: Rosuvastatin 20 MG TAB PO SCH (20:48)
[2020-05-07] MEDS: Donepezil HCl 10 MG TAB PO SCH (20:48)
[2020-05-08] MEDS: HumaLOG 300 UNITS/3 ML VIAL SC PRN ×4 (05:32→16:29)
[2020-05-08] MEDS: Stress 600 With Zinc 1 TAB PO SCH (08:01)
[2020-05-08] MEDS: Amiodarone 200 MG TAB PO SCH ×2 (08:01→20:22)
[2020-05-08] MEDS: Ubidecarenone 50 MG CAP PO SCH (08:01)
[2020-05-08] MEDS: Insulin Glargine 10 UNITS in Pre-Filled Syringe 1 EACH SC SCH ×2 (08:40→22:09)
--- NOTE | 2020-05-08 19:21 | PDOC.HOSPP ---
- Subjective Encounter Date: 05/08/20 Encounter Time: 17:15 Subjective: f/u for sepsis/HONG/advanced dementia/deconditioning. Family deciding on outpt hospice after transferring to SNF and options being coordinated with CM. - Objective Vital Signs & Weight: Vital Signs (12 hours) Temp Pulse Resp BP Pulse Ox 05/08/20 16:18 97.6 F 70 18 142/87 H 93 L 05/08/20 11:24 97.4 F L 71 18 151/88 H 91 L 05/08/20 08:00 93 L 05/08/20 07:42 97.5 F L 76 18 168/100 H 90 L Weight Admit Weight 162 lb 11.2 oz Weight 167 lb 14.4 oz I&O: 05/07/20 05/08/20 05/09/20 06:59 06:59 06:59 Intake Total 4297 324 4814 Output Total 100 Balance 1000 960 980 Result Diagrams: 05/05/20 16:01 05/07/20 06:33 Additional Labs: Accuchecks 05/08/20 05/08/20 05/08/20 16:16 11:22 05:25 POC Glucose 335 H 352 H 237 H 05/07/20 05/04/20 05/03/20 19:21 11:28 16:27 POC Glucose 291 H 206 H 129 H Microbiology 04/28/20 23:39 Venous blood - Right Hand Blood Culture - Final NO GROWTH IN 5 DAYS 04/28/20 23:39 Venous blood - Left Hand Blood Culture - Final Bacillus species,NOT anthracis 05/05/20 16:20 Venous blood - Left Arm Blood Culture - Preliminary NO GROWTH AT 48 HOURS 05/05/20 16:01 Venous blood - Right Arm Blood Culture - Preliminary NO GROWTH AT 48 HOURS Laboratory Tests 04/29/20 05/02/20 05/03/20 02:25 23:09 08:54 Carbon Dioxide 13 L Creatinine 2.05 H 1.99 H SARS-CoV-2 (PCR) Not Detected 05/04/20 05/05/20 05/06/20 07:07 16:01 05:55 Carbon Dioxide 11 L 19 L 14 L Creatinine 1.75 H 1.87 H 1.78 H SARS-CoV-2 (PCR) Radiology Reviewed by me: Yes (CT abd/pel - no acute process, bilat pleural eff) Hospitalist ROS - Medication Medications: Active Medications Generic Name Dose Route Start Last Admin Trade Name Freq PRN Reason Stop Dose Admin Amiodarone HCl 200 mg 05/01/20 21:00 05/08/20 08:01 Amiodarone 200 Mg Tab PO 200 mg BID WALE Administration Coenzyme Q10 100 mg 04/30/20 09:00 05/08/20 08:01 Ubidecarenone 50 Mg Cap PO 100 mg DAILY WALE Administration Donepezil HCl 10 mg 04/30/20 21:00 05/07/20 20:48 Donepezil Hcl 10 Mg Tab PO Not Given HS WALE Insulin Glargine 10 units/ 0.1 mls @ 0 mls/hr 05/07/20 09:00 05/08/20 08:40 Miscellaneous Medication SC 0.1 mls QAM WALE Administration Insulin Human Lispro 0 units 04/29/20 17:17 05/08/20 16:29 Humalog 300 Units/3 Ml Vial SC 5 units .MILD SLIDING SCALE PRN Administration Mild Correctional Scale Metoprolol Succinate 25 mg 04/29/20 14:31 05/08/20 08:01 Metoprolol Succinate Xl 25 Mg Tab PO 25 mg DAILY WALE Administration Morphine Sulfate 2 mg 04/29/20 11:30 05/06/20 01:02 Morphine 2 Mg/Ml Vial SLOW IVP 2 mg Q2H PRN Administration Moderate to Severe Pain (6-10) Multivitamins/Zinc 1 tab 04/30/20 09:00 05/08/20 08:01 Stress 600 With Zinc 1 Tab PO 1 tab DAILY WALE Administration Nitroglycerin 0.4 mg 04/29/20 11:53 04/29/20 16:49 Nitroglycerin 0.4 Mg Tab (25 Tab Bottle) SL 1 tablet Q5MIN PRN Administration Chest Pain Olanzapine 10 mg 05/01/20 13:01 05/04/20 15:53 Olanzapine 10 Mg Vial IM 10 mg TID PRN Administration Agitation Rosuvastatin Calcium 20 mg 04/30/20 21:00 05/07/20 20:48 Rosuvastatin 20 Mg Tab PO Not Given HS WALE Sertraline HCl 50 mg 04/30/20 09:00 05/08/20 08:00 Sertraline Hcl 25 Mg Tab PO 50 mg DAILY WALE Administration Sodium Chloride 10 ml 04/30/20 20:30 05/07/20 08:08 Flush - Normal Saline 10 Ml Syringe IVF 10 ml PRN PRN Administration Saline Flush - Exam General Appearance: NAD, awake alert Eye: PERRL, anicteric sclera ENT: normocephalic atraumatic, no oropharyngeal lesions Neck: supple, symmetric, no JVD, no thyromegaly, no lymphadenopathy Heart: RRR, no gallops, no rubs, normal peripheral pulses Heart - other findings: S1, S2 Respiratory: no wheezes, no ronchi, no tachypnea Respiratory - other findings: diminished in bases bilat Gastrointestinal: soft, non-tender, non-distended, normal bowel sounds, no palpable masses Extremities: no cyanosis, no clubbing, no edema Skin: normal turgor Neurological: cranial nerve grossly intact, no new deficit Musculoskeletal: normal tone, generalized weakness Psychiatric: oriented to person, flat affect Hosp A/P (1) Sepsis Code(s): A41.9 - SEPSIS, UNSPECIFIED ORGANISM Status: Acute Qualifiers: Severe sepsis shock status: without septic shock Plan: Completed abx course, supportive (2) Bacterial infection due to bacillus fragilis Code(s): A49.8 - OTHER BACTERIAL INFECTIONS OF UNSPECIFIED SITE Status: Suspected Plan: ? contaminant organism (3) HONG (acute kidney injury) Code(s): N17.9 - ACUTE KIDNEY FAILURE, UNSPECIFIED Status: Acute Plan: Resolving, avoid nephrotoxic meds and limit contrast exposure (4) Dementia Code(s): F03.90 - UNSPECIFIED DEMENTIA WITHOUT BEHAVIORAL DISTURBANCE Status: Chronic Qualifiers: Dementia type: unspecified type Dementia behavioral disturbance: with behavioral disturbance Qualified Code(s): F03.91 - Unspecified dementia with behavioral disturbance Plan: Advanced, SNF options pending (5) IDDM (insulin dependent diabetes mellitus) Code(s): [id number] - Status: Chronic Plan: Labile, Increase Lantus 10u sc BID, ISS, serial accuchecks (6) Acute metabolic encephalopathy due to hypoglycemia Code(s): G93.41 - METABOLIC ENCEPHALOPATHY; E16.2 - HYPOGLYCEMIA, UNSPECIFIED Status: Acute Plan: Resolved, currently hyperglycemic (7) Acute on chronic combined systolic and diastolic CHF (congestive heart failure) Code(s): I50.43 - ACUTE ON CHRONIC COMBINED SYSTOLIC AND DIASTOLIC HRT FAIL Status: Chronic Plan: Continue med mgmt, compensated currently - Plan 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
[2020-05-08] MEDS: Rosuvastatin 20 MG TAB PO SCH (20:21)
[2020-05-08] MEDS: Donepezil HCl 10 MG TAB PO SCH (20:21)
[2020-05-09] MEDS: OLANZapine 10 MG VIAL IM PRN (00:04)
[2020-05-09] MEDS: Acetaminophen 650 MG Suppository PR PRN (03:40)
[2020-05-09] MEDS: Ubidecarenone 50 MG CAP PO SCH (08:35)
[2020-05-09] MEDS: Amiodarone 200 MG TAB PO SCH ×2 (08:35→21:09)
[2020-05-09] MEDS: Insulin Glargine 10 UNITS in Pre-Filled Syringe 1 EACH SC SCH ×2 (08:35→21:10)
[2020-05-09] MEDS: Stress 600 With Zinc 1 TAB PO SCH (08:36)
[2020-05-09] MEDS ORDERED: Furosemide 40 MG/4 ML VIAL SLOW IVP SCH (12:30)
--- NOTE | 2020-05-09 12:38 | PDOC.HOSPP ---
- Subjective Encounter Date: 05/09/20 Encounter Time: 12:25 Subjective: f/u for sepsis/HONG/CHF/dementia. Nursing noted pt to be SOB with mild hypoxia. Remains confused. - Objective Vital Signs & Weight: Vital Signs (12 hours) Temp Pulse Resp BP BP Pulse Ox 05/09/20 11:30 97.2 F L 68 18 154/90 H 95 05/09/20 08:22 97.3 F L 88 24 H 165/90 H 91 L 05/09/20 08:00 91 L 05/09/20 04:00 97.3 F L 66 20 162/87 H 94 L Weight Admit Weight 162 lb 11.2 oz Weight 164 lb 7 oz I&O: 05/08/20 05/09/20 05/10/20 06:59 06:59 06:59 Intake Total 960 1080 Output Total 300 Balance 960 780 Result Diagrams: 05/05/20 16:01 05/07/20 06:33 Additional Labs: Accuchecks 05/09/20 05/08/20 05/08/20 11:34 20:13 16:16 POC Glucose 144 H 269 H 335 H Microbiology 04/28/20 23:39 Venous blood - Right Hand Blood Culture - Final NO GROWTH IN 5 DAYS 04/28/20 23:39 Venous blood - Left Hand Blood Culture - Final Bacillus species,NOT anthracis 05/05/20 16:20 Venous blood - Left Arm Blood Culture - Preliminary NO GROWTH AT 48 HOURS 05/05/20 16:01 Venous blood - Right Arm Blood Culture - Preliminary NO GROWTH AT 48 HOURS Laboratory Tests 04/29/20 05/02/20 05/03/20 02:25 23:09 08:54 Carbon Dioxide 13 L Creatinine 2.05 H 1.99 H SARS-CoV-2 (PCR) Not Detected 05/04/20 05/05/20 05/06/20 07:07 16:01 05:55 Carbon Dioxide 11 L 19 L 14 L Creatinine 1.75 H 1.87 H 1.78 H SARS-CoV-2 (PCR) Hospitalist ROS - Medication Medications: Active Medications Generic Name Dose Route Start Last Admin Trade Name Freq PRN Reason Stop Dose Admin Acetaminophen 650 mg 04/29/20 01:28 05/09/20 03:40 Acetaminophen 650 Mg Suppository [place] 650 mg Q4H PRN Administration Headache/Fever/Mild Pain (1-3) Amiodarone HCl 200 mg 05/01/20 21:00 05/09/20 08:35 Amiodarone 200 Mg Tab PO 200 mg BID WALE Administration Coenzyme Q10 100 mg 04/30/20 09:00 05/09/20 08:35 Ubidecarenone 50 Mg Cap PO 100 mg DAILY WALE Administration Donepezil HCl 10 mg 04/30/20 21:00 05/08/20 20:21 Donepezil Hcl 10 Mg Tab PO 10 mg HS WALE Administration Insulin Glargine 10 units/ 0.1 mls @ 0.1 mls/hr 05/08/20 21:00 05/09/20 08:35 Miscellaneous Medication SC 0.1 mls BID WALE Administration Insulin Human Lispro 0 units 04/29/20 17:17 05/08/20 16:29 Humalog 300 Units/3 Ml Vial SC 5 units .MILD SLIDING SCALE PRN Administration Mild Correctional Scale Metoprolol Succinate 25 mg 04/29/20 14:31 05/09/20 08:35 Metoprolol Succinate Xl 25 Mg Tab PO 25 mg DAILY WALE Administration Multivitamins/Zinc 1 tab 04/30/20 09:00 05/09/20 08:36 Stress 600 With Zinc 1 Tab PO 1 tab DAILY WALE Administration Nitroglycerin 0.4 mg 04/29/20 11:53 04/29/20 16:49 Nitroglycerin 0.4 Mg Tab (25 Tab Bottle) SL 1 tablet Q5MIN PRN Administration Chest Pain Olanzapine 10 mg 05/01/20 13:01 05/09/20 00:04 Olanzapine 10 Mg Vial IM 10 mg TID PRN Administration Agitation Rosuvastatin Calcium 20 mg 04/30/20 21:00 05/08/20 20:21 Rosuvastatin 20 Mg Tab PO 20 mg HS WALE Administration Sertraline HCl 50 mg 04/30/20 09:00 05/09/20 08:35 Sertraline Hcl 25 Mg Tab PO 50 mg DAILY WALE Administration Sodium Chloride 10 ml 04/30/20 20:30 05/07/20 08:08 Flush - Normal Saline 10 Ml Syringe IVF 10 ml PRN PRN Administration Saline Flush - Exam General Appearance: awake alert Eye: PERRL, anicteric sclera ENT: normocephalic atraumatic, no oropharyngeal lesions Neck: supple, symmetric, no JVD, no thyromegaly, no lymphadenopathy Heart: RRR, no gallops, no rubs, normal peripheral pulses Heart - other findings: S1, S2 Respiratory: no wheezes, tachypneic Respiratory - other findings: diminished with bibasilar crackles Gastrointestinal: soft, non-tender, non-distended, normal bowel sounds, no palpable masses Extremities: no cyanosis, no clubbing, no edema Skin: normal turgor Neurological: cranial nerve grossly intact, no new deficit Musculoskeletal: normal tone, generalized weakness Psychiatric: oriented to person, flat affect Hosp A/P (1) Sepsis Code(s): A41.9 - SEPSIS, UNSPECIFIED ORGANISM Status: Acute Qualifiers: Severe sepsis shock status: without septic shock Plan: Resolved, no further abx therapy (2) Bacterial infection due to bacillus fragilis Code(s): A49.8 - OTHER BACTERIAL INFECTIONS OF UNSPECIFIED SITE Status: Suspected (3) HONG (acute kidney injury) Code(s): N17.9 - ACUTE KIDNEY FAILURE, UNSPECIFIED Status: Acute Plan: Resolved, appears near baseline renal function (4) Dementia Code(s): F03.90 - UNSPECIFIED DEMENTIA WITHOUT BEHAVIORAL DISTURBANCE Status: Chronic Qualifiers: Dementia type: unspecified type Dementia behavioral disturbance: with behavioral disturbance Qualified Code(s): F03.91 - Unspecified dementia with behavioral disturbance Plan: Advanced, will need supervised medical care, family considering hospice options (5) IDDM (insulin dependent diabetes mellitus) Code(s): FQS4065 - Status: Chronic Plan: Labile trend, continue titrating insulin regimen, ISS, ADA (6) Acute metabolic encephalopathy due to hypoglycemia Code(s): G93.41 - METABOLIC ENCEPHALOPATHY; E16.2 - HYPOGLYCEMIA, UNSPECIFIED Status: Acute (7) Acute on chronic combined systolic and diastolic CHF (congestive heart failure) Code(s): I50.43 - ACUTE ON CHRONIC COMBINED SYSTOLIC AND DIASTOLIC HRT FAIL Status: Chronic Plan: Lasix 40mg IV x 1 dose now - Plan PT/OT, case management social worker, speech therapy, respiratory therapy, out of bed/ambulate, DVT proph w/SCDs Stable currently Continue supportive mgmt Lasix 40mg IV x 1 dose now CM assisting with SNF options Likely will transition to hospice after transfer to SNF OOB with PT Increase Lantus 10u sc BID Code Status: DNAR
[2020-05-09] MEDS: Rosuvastatin 20 MG TAB PO SCH (21:08)
[2020-05-09] MEDS: Donepezil HCl 10 MG TAB PO SCH (21:09)
[2020-05-10] MEDS: Insulin Glargine 10 UNITS in Pre-Filled Syringe 1 EACH SC SCH ×2 (09:16→21:06)
[2020-05-10] MEDS: Stress 600 With Zinc 1 TAB PO SCH (09:17)
[2020-05-10] MEDS: Ubidecarenone 50 MG CAP PO SCH (09:17)
[2020-05-10] MEDS: Amiodarone 200 MG TAB PO SCH ×2 (09:18→21:06)
--- NOTE | 2020-05-10 12:14 | PDOC.HOSPP ---
- Subjective Encounter Date: 05/10/20 Encounter Time: 12:00 Subjective: f/u for CHF/HONG/Dementia/Deconditioning s/p IV Lasix. Feels less SOB this am, talking to son in room. - Objective Vital Signs & Weight: Vital Signs (12 hours) Temp Pulse Resp BP Pulse Ox 05/10/20 08:35 97.8 F 60 20 114/67 95 05/10/20 04:00 98.1 F 60 15 136/73 96 Weight Admit Weight 162 lb 11.2 oz Weight 159 lb 2 oz I&O: 05/09/20 05/10/20 05/11/20 06:59 06:59 06:59 Intake Total 1080 600 Output Total 300 1020 Balance 780 -420 Result Diagrams: 05/05/20 16:01 05/07/20 06:33 Additional Labs: Accuchecks 05/10/20 05/10/20 05/09/20 09:12 05:06 19:17 POC Glucose 92 82 255 H 05/09/20 05/09/20 16:25 05:02 POC Glucose 179 H 215 H Microbiology 04/28/20 23:39 Venous blood - Right Hand Blood Culture - Final NO GROWTH IN 5 DAYS 04/28/20 23:39 Venous blood - Left Hand Blood Culture - Final Bacillus species,NOT anthracis 05/05/20 16:20 Venous blood - Left Arm Blood Culture - Preliminary NO GROWTH AT 48 HOURS 05/05/20 16:01 Venous blood - Right Arm Blood Culture - Preliminary NO GROWTH AT 48 HOURS Laboratory Tests 04/29/20 05/02/20 05/03/20 02:25 23:09 08:54 Carbon Dioxide 13 L Creatinine 2.05 H 1.99 H SARS-CoV-2 (PCR) Not Detected 05/04/20 05/05/20 05/06/20 07:07 16:01 05:55 Carbon Dioxide 11 L 19 L 14 L Creatinine 1.75 H 1.87 H 1.78 H SARS-CoV-2 (PCR) Hospitalist ROS - Medication Medications: Active Medications Generic Name Dose Route Start Last Admin Trade Name Freq PRN Reason Stop Dose Admin Acetaminophen 650 mg 04/29/20 01:28 05/09/20 03:40 Acetaminophen 650 Mg Suppository [place] 650 mg Q4H PRN Administration Headache/Fever/Mild Pain (1-3) Amiodarone HCl 200 mg 05/01/20 21:00 05/10/20 09:18 Amiodarone 200 Mg Tab PO 200 mg BID WALE Administration Coenzyme Q10 100 mg 04/30/20 09:00 05/10/20 09:17 Ubidecarenone 50 Mg Cap PO 100 mg DAILY WALE Administration Donepezil HCl 10 mg 04/30/20 21:00 05/09/20 21:09 Donepezil Hcl 10 Mg Tab PO 10 mg HS WALE Administration Insulin Glargine 10 units/ 0.1 mls @ 0.1 mls/hr 05/08/20 21:00 05/10/20 09:16 Miscellaneous Medication SC 0.1 mls BID WALE Administration Insulin Human Lispro 0 units 04/29/20 17:17 05/08/20 16:29 Humalog 300 Units/3 Ml Vial SC 5 units .MILD SLIDING SCALE PRN Administration Mild Correctional Scale Metoprolol Succinate 25 mg 04/29/20 14:31 05/10/20 09:18 Metoprolol Succinate Xl 25 Mg Tab PO 25 mg DAILY WALE Administration Multivitamins/Zinc 1 tab 04/30/20 09:00 05/10/20 09:17 Stress 600 With Zinc 1 Tab PO 1 tab DAILY WALE Administration Nitroglycerin 0.4 mg 04/29/20 11:53 04/29/20 16:49 Nitroglycerin 0.4 Mg Tab (25 Tab Bottle) SL 1 tablet Q5MIN PRN Administration Chest Pain Olanzapine 10 mg 05/01/20 13:01 05/09/20 00:04 Olanzapine 10 Mg Vial IM 10 mg TID PRN Administration Agitation Rosuvastatin Calcium 20 mg 04/30/20 21:00 05/09/20 21:08 Rosuvastatin 20 Mg Tab PO 20 mg HS WALE Administration Sertraline HCl 50 mg 04/30/20 09:00 05/10/20 09:17 Sertraline Hcl 25 Mg Tab PO 50 mg DAILY WALE Administration Sodium Chloride 10 ml 04/30/20 20:30 05/07/20 08:08 Flush - Normal Saline 10 Ml Syringe IVF 10 ml PRN PRN Administration Saline Flush - Exam General Appearance: NAD, awake alert Eye: PERRL, anicteric sclera ENT: normocephalic atraumatic, no oropharyngeal lesions Neck: supple, symmetric, no JVD, no thyromegaly, no lymphadenopathy Heart: RRR, no gallops, no rubs, normal peripheral pulses Heart - other findings: S1, S2 Respiratory: no tachypnea Respiratory - other findings: few basilar crackles o/w clear Gastrointestinal: soft, non-tender, non-distended, normal bowel sounds, no palpable masses Extremities: no cyanosis, no clubbing, no edema Skin: normal turgor, no lesions Neurological: cranial nerve grossly intact, no new deficit Musculoskeletal: normal tone, generalized weakness Psychiatric: normal affect, oriented to person Hosp A/P (1) Sepsis Code(s): A41.9 - SEPSIS, UNSPECIFIED ORGANISM Status: Acute Qualifiers: Severe sepsis shock status: without septic shock Plan: Resolved, completed abx course (2) Bacterial infection due to bacillus fragilis Code(s): A49.8 - OTHER BACTERIAL INFECTIONS OF UNSPECIFIED SITE Status: Suspected (3) HONG (acute kidney injury) Code(s): N17.9 - ACUTE KIDNEY FAILURE, UNSPECIFIED Status: Acute (4) Dementia Code(s): F03.90 - UNSPECIFIED DEMENTIA WITHOUT BEHAVIORAL DISTURBANCE Status: Chronic Qualifiers: Dementia type: unspecified type Dementia behavioral disturbance: with behavioral disturbance Qualified Code(s): F03.91 - Unspecified dementia with behavioral disturbance Plan: Advanced, supportive mgmt (5) IDDM (insulin dependent diabetes mellitus) Code(s): [id number] - Status: Chronic (6) Acute metabolic encephalopathy due to hypoglycemia Code(s): G93.41 - METABOLIC ENCEPHALOPATHY; E16.2 - HYPOGLYCEMIA, UNSPECIFIED Status: Acute (7) Acute on chronic combined systolic and diastolic CHF (congestive heart failure) Code(s): I50.43 - ACUTE ON CHRONIC COMBINED SYSTOLIC AND DIASTOLIC HRT FAIL Status: Chronic Plan: Continue Lasix 40mg po q2D, EF 25-30% - Plan plan discussed w/ family, PT/OT, manager social services, out of bed/ambulate, DVT proph w/SCDs Stable currently Continue supportive mgmt Lasix 40mg po q2D CM assisting with SNF options Likely will transition to hospice after transfer to SNF OOB with PT Increase Lantus 10u sc BID Code Status: DNAR
[2020-05-10] MEDS ORDERED: Furosemide 40 MG TAB PO SCH (12:30)
[2020-05-10] MEDS: Donepezil HCl 10 MG TAB PO SCH (21:06)
[2020-05-10] MEDS: Rosuvastatin 20 MG TAB PO SCH (21:06)
[2020-05-11] MEDS: Ubidecarenone 50 MG CAP PO SCH (08:07)
[2020-05-11] MEDS: Stress 600 With Zinc 1 TAB PO SCH (08:08)
[2020-05-11] MEDS: Amiodarone 200 MG TAB PO SCH ×2 (08:08→19:44)
[2020-05-11] MEDS: Insulin Glargine 10 UNITS in Pre-Filled Syringe 1 EACH SC SCH ×2 (09:24→21:16)
--- NOTE | 2020-05-11 10:53 | PDOC.HOSPP ---
- Subjective Encounter Date: 05/11/20 Encounter Time: 09:45 Subjective: f/u for CHF, HONG, advanced dementia - today condition stable and supportive managing with Lasix while awaiting placement options. No longer feels short of breath from previous days. - Objective Vital Signs & Weight: Vital Signs (12 hours) Temp Pulse Resp BP Pulse Ox 05/11/20 08:07 97.3 F L 61 18 118/69 97 Weight Admit Weight 162 lb 11.2 oz Weight 159 lb 2 oz I&O: 05/10/20 05/11/20 05/12/20 06:59 06:59 06:59 Intake Total 600 1000 Output Total 1020 550 Balance -420 450 Result Diagrams: 05/05/20 16:01 05/07/20 06:33 Additional Labs: Laboratory Tests 05/10/20 05/10/20 05/10/20 11:40 16:49 20:32 POC Glucose 112 H 100 173 H 05/11/20 06:15 POC Glucose 171 H Hospitalist ROS - Review of Systems ROS unobtainable: due to mental status Respiratory: denies: cough, dry, shortness of breath, hemoptysis, SOB with excertion, pleuritic pain, sputum, wheezing, other Cardiovascular: denies: chest pain, palpitations, orthopnea, paroxysmal noc. dyspnea, edema, light headedness, other Gastrointestinal: denies: nausea, vomiting, abdominal pain, diarrhea, constipation, melena, hematochezia, other - Medication Medications: Active Medications Generic Name Dose Route Start Last Admin Trade Name Freq PRN Reason Stop Dose Admin Acetaminophen 650 mg 04/29/20 01:28 05/09/20 03:40 Acetaminophen 650 Mg Suppository [place] 650 mg Q4H PRN Administration Headache/Fever/Mild Pain (1-3) Amiodarone HCl 200 mg 05/01/20 21:00 05/11/20 08:08 Amiodarone 200 Mg Tab PO 200 mg BID WALE Administration Coenzyme Q10 100 mg 04/30/20 09:00 05/11/20 08:07 Ubidecarenone 50 Mg Cap PO 100 mg DAILY WALE Administration Donepezil HCl 10 mg 04/30/20 21:00 05/10/20 21:06 Donepezil Hcl 10 Mg Tab PO 10 mg HS WALE Administration Furosemide 40 mg 05/10/20 12:30 05/10/20 13:29 Furosemide 40 Mg Tab PO 40 mg Q2D WALE Administration Insulin Glargine 10 units/ 0.1 mls @ 0.1 mls/hr 05/08/20 21:00 05/11/20 09:24 Miscellaneous Medication SC 0.1 mls BID WALE Administration Insulin Human Lispro 0 units 04/29/20 17:17 05/08/20 16:29 Humalog 300 Units/3 Ml Vial SC 5 units .MILD SLIDING SCALE PRN Administration Mild Correctional Scale Metoprolol Succinate 25 mg 04/29/20 14:31 05/11/20 08:08 Metoprolol Succinate Xl 25 Mg Tab PO 25 mg DAILY WALE Administration Multivitamins/Zinc 1 tab 04/30/20 09:00 05/11/20 08:08 Stress 600 With Zinc 1 Tab PO 1 tab DAILY WALE Administration Nitroglycerin 0.4 mg 04/29/20 11:53 04/29/20 16:49 Nitroglycerin 0.4 Mg Tab (25 Tab Bottle) SL 1 tablet Q5MIN PRN Administration Chest Pain Olanzapine 10 mg 05/01/20 13:01 05/09/20 00:04 Olanzapine 10 Mg Vial IM 10 mg TID PRN Administration Agitation Rosuvastatin Calcium 20 mg 04/30/20 21:00 05/10/20 21:06 Rosuvastatin 20 Mg Tab PO 20 mg HS WALE Administration Sertraline HCl 50 mg 04/30/20 09:00 05/11/20 08:07 Sertraline Hcl 25 Mg Tab PO 50 mg DAILY WALE Administration Sodium Chloride 10 ml 04/30/20 20:30 05/07/20 08:08 Flush - Normal Saline 10 Ml Syringe IVF 10 ml PRN PRN Administration Saline Flush - Exam General Appearance: awake alert Heart: RRR, no murmur, no gallops, no rubs, normal peripheral pulses Respiratory: CTAB, no wheezes, no rales, no ronchi, normal chest expansion, no tachypnea, normal percussion Psychiatric: normal affect, not oriented Hosp A/P (1) Sepsis Code(s): A41.9 - SEPSIS, UNSPECIFIED ORGANISM Status: Acute Qualifiers: Severe sepsis shock status: without septic shock Plan: resolved, antibiotic course completed (2) Bacterial infection due to bacillus fragilis Code(s): A49.8 - OTHER BACTERIAL INFECTIONS OF UNSPECIFIED SITE Status: Suspected (3) HONG (acute kidney injury) Code(s): N17.9 - ACUTE KIDNEY FAILURE, UNSPECIFIED Status: Acute (4) Dementia Code(s): F03.90 - UNSPECIFIED DEMENTIA WITHOUT BEHAVIORAL DISTURBANCE Status: Chronic Qualifiers: Dementia type: unspecified type Dementia behavioral disturbance: with behavioral disturbance Qualified Code(s): F03.91 - Unspecified dementia with behavioral disturbance Plan: supportive management, awaiting placement to SNF (5) IDDM (insulin dependent diabetes mellitus) Code(s): [id number] - Status: Chronic (6) Acute metabolic encephalopathy due to hypoglycemia Code(s): G93.41 - METABOLIC ENCEPHALOPATHY; E16.2 - HYPOGLYCEMIA, UNSPECIFIED Status: Acute (7) Acute on chronic combined systolic and diastolic CHF (congestive heart failure) Code(s): I50.43 - ACUTE ON CHRONIC COMBINED SYSTOLIC AND DIASTOLIC HRT FAIL Status: Chronic Plan: continuing Lasix, EF 25-30% - Plan old records reviewed/req, psychiatric social worker supervisor, out of bed/ambulate, DVT proph w/SCDs Condition stable Continue supportive care Lasix 40mg q2d Appreciate case management support with transfer to SNF Probably begin hospice after transfer to SNF OOB with PT Code: NGA
[2020-05-11 12:06] VITALS: BMI 22.1
[2020-05-11] MEDS: Rosuvastatin 20 MG TAB PO SCH (19:44)
[2020-05-11] MEDS: Donepezil HCl 10 MG TAB PO SCH (19:44)
[2020-05-12] MEDS: Acetaminophen 650 MG Suppository PR PRN (00:39)
[2020-05-12] MEDS: Insulin Glargine 10 UNITS in Pre-Filled Syringe 1 EACH SC SCH (08:17)
[2020-05-12] MEDS: Amiodarone 200 MG TAB PO SCH (08:17)
[2020-05-12] MEDS: Ubidecarenone 50 MG CAP PO SCH (08:17)
[2020-05-12] MEDS: Stress 600 With Zinc 1 TAB PO SCH (08:17)
--- NOTE | 2020-05-12 09:46 | PDOC.DS.DS ---
Provider - Provider Date of Admission: 04/29/20 01:31 Date of Discharge: 05/12/20 Admitting Provider: Leonardo Mathis MD Consultations: Cardiology Primary Care Physician: Unknown Course - Hospital Course Hospital Course: 84-year-old male who was admitted in hospital on April 29, 2020 with altered mental status, on admission he had hypoglycemia, his altered mental status was attributed to be due to metabolic etiology, he was initially hypothermic and there was concern of sepsis given elevated lactic acid, in the emergency room he was treated with rewarming procedure, sepsis work-up was initiated in the emergency room, he was given broad-spectrum antibiotic therapy, patient also had significant hypokalemia which was replaced, on admission patient was DNR/DNI, his blood sugar was closely monitored. Initially CT brain in the emergency room showed chronic changes without any acute process, atrophy noted, chest x-ray showed pulmonary vascular congestion and nonspecific perihilar interstitial prominence, partial, consolidation was identified on left lower lobe Patient had echocardiography which showed EF 25 to 30% and diastolic dysfunction. Patient also has moderate to severe mitral regurgitation. Cardiology was consulted, patient has underlying history of paroxysmal atrial fibrillation and patient was started on amiodarone. Patient also had elevated troponin on admission which was attributed to be due to type II myocardial infarction from demand ischemia. Patient was given oral amiodarone and he will follow up with cardiology at [facility]. Patient also had CT abdomen and pelvis which showed bilateral pleural effusion. Patient has significant physical deconditioning and that is why patient is requiring placement, while in hospital PT OT evaluated this patient, speech therapy was also following this patient, his routine laboratory parameters were unremarkable. His COVID-19 test is negative, his blood culture is negative. Patient seen and examined bedside today. Patient is planned for [facility] to [facility]. Resuscitation Status: 04/29/20 02:00 Resuscitation Status Routine Resuscitation Status: DNAR: NO Resuscitation Discussed with: as per patient son, witnessed by ED nuse and physician - Labs Lab Results: 05/05/20 16:01 05/07/20 06:33 Microbiology - Entire Visit 05/05/20 16:20 Venous blood - Left Arm Blood Culture - Final NO GROWTH IN 5 DAYS 05/05/20 16:01 Venous blood - Right Arm Blood Culture - Final NO GROWTH IN 5 DAYS 04/28/20 23:39 Venous blood - Right Hand Blood Culture - Final NO GROWTH IN 5 DAYS 04/28/20 23:39 Venous blood - Left Hand Blood Culture - Final Bacillus species,NOT anthracis - Physical Exam Vitals: Vital Signs (12 hours) Temp Pulse Resp BP Pulse Ox 05/12/20 08:10 97.3 F L 59 L 18 128/71 98 05/12/20 05:33 98.5 F 59 L 18 103/60 95 05/12/20 00:00 98.2 F 60 18 127/62 95 Weight Admit Weight 162 lb 11.2 oz Weight 156 lb 1 oz Physical Exam: The patient was seen and examined on the day of discharge. General patient is currently alert awake no acute distress Head normocephalic atraumatic Neck supple no JVD no meningeal signs of irritation Lungs air entry reduced at base but no rales, no wheeze, he is on room air Cardiac S1-S2 regular, soft systolic murmur noted at apex, no gallop no rub Abdomen soft, bowel sound present, nontender nondistended no organomegaly no mass Extremities no edema good distal pulsation Skin no skin rash Hematological system no lymphadenopathy Neurologic nonfocal examination. Problem - Problem (1) Sepsis Code(s): A41.9 - SEPSIS, UNSPECIFIED ORGANISM Status: Resolved Qualifiers: Severe sepsis shock status: without septic shock (2) Bacterial infection due to bacillus fragilis Code(s): A49.8 - OTHER BACTERIAL INFECTIONS OF UNSPECIFIED SITE Status: Suspected Plan: Contaminated without any sepsis. (3) HONG (acute kidney injury) Code(s): N17.9 - ACUTE KIDNEY FAILURE, UNSPECIFIED Status: Resolved (4) Dementia Code(s): F03.90 - UNSPECIFIED DEMENTIA WITHOUT BEHAVIORAL DISTURBANCE Status: Chronic Qualifiers: Dementia type: unspecified type Dementia behavioral disturbance: with behavioral disturbance Qualified Code(s): F03.91 - Unspecified dementia with behavioral disturbance (5) IDDM (insulin dependent diabetes mellitus) Code(s): [id number] - Status: Chronic (6) Acute metabolic encephalopathy due to hypoglycemia Code(s): G93.41 - METABOLIC ENCEPHALOPATHY; E16.2 - HYPOGLYCEMIA, UNSPECIFIED Status: Resolved (7) Acute on chronic combined systolic and diastolic CHF (congestive heart failure) Code(s): I50.43 - ACUTE ON CHRONIC COMBINED SYSTOLIC AND DIASTOLIC HRT FAIL Status: Resolved Plan - Discharge Medications Prescriptions: Amiodarone [Cordarone] 200 mg PO BID #30 tab Insulin Aspart 100 unit SQ ACHS PRN #1 vial PRN Reason: as per moderate sliding scale Insulin Glargine [Lantus Vial] 10 units SC BID #1 vial Furosemide [Lasix] 40 mg PO Q2D #30 tab Lisinopril 2.5 mg PO DAILY #30 tablet Metoprolol Succinate [Toprol XL] 25 mg PO DAILY #30 tab Home Medications: Medication Instructions Recorded Confirmed Type Clopidogrel Bisulfate [Clopidogrel] 1 tab PO DAILY 10/03/19 04/29/20 History Donepezil HCl [Aricept] 10 mg PO HS 10/03/19 04/29/20 History Oxybutynin Chloride [Oxybutynin 10 mg PO DAILY 10/03/19 04/29/20 History Chloride ER] Rosuvastatin Calcium 20 mg PO HS 10/03/19 04/29/20 History Sertraline HCl 50 mg PO DAILY 10/03/19 04/29/20 History Aspirin [Ecotrin Low Strength] 81 mg PO DAILY 04/29/20 04/29/20 History Famotidine [Pepcid] 20 mg PO DAILY 04/29/20 04/29/20 History Fluticasone Propionate [Flovent 2 sprays NASAL DAILY 04/29/20 04/29/20 History Diskus] Ubidecarenone [Co Q-10] 100 mg PO DAILY 04/29/20 04/29/20 History Vitamin B Complex [B Complex] 1 tab PO DAILY 04/29/20 04/29/20 History Amiodarone [Cordarone] 200 mg PO BID #30 tab 05/12/20 Rx Furosemide [Lasix] 40 mg PO Q2D #30 tab 05/12/20 Rx Insulin Aspart 100 unit SQ ACHS PRN #1 vial 05/12/20 Rx Insulin Glargine [Lantus Vial] 10 units SC BID #1 vial 05/12/20 Rx Lisinopril 2.5 mg PO DAILY #30 tablet 05/12/20 Rx Metoprolol Succinate [Toprol XL] 25 mg PO DAILY #30 tab 05/12/20 Rx Allergies: Penicillins Allergy (Verified 04/29/20 06:42) itching ranolazine [From Ranexa] Allergy (Verified 04/29/20 06:42) Anxiety - Discharge Instructions Discharge Instructions:: [facility] hospice [phone] Activity:: Activity as Tolerated Nourishment:: Heart Healthy Diet Therapies:: Occupational Therapy, Physical Therapy Equipment/Supplies:: Not Applicable IV Therapy:: Not Applicable - Follow up Plan Referrals: Unknown,Unknown [Primary Care Provider] - Lizabeth Reardon MD [Active] - Disposition: CARE HOME FACILITY Quality - Care Measures CORE MEASURES:: HF (Patient is given all core measures treatment for congestive heart failure.)
[2020-05-12 12:00] VITALS: BP 108/65; TEMP 97.9
--- NOTE | 2020-05-13 15:04 | EKG ---
Test Reason : Blood Pressure : / mmHG Vent. Rate : 061 BPM Atrial Rate : 061 BPM P-R Int : 198 ms QRS Dur : 198 ms QT Int : 524 ms P-R-T Axes : 000 064 183 degrees QTc Int : 527 ms AV dual-paced rhythm with occasional ventricular-paced complexes Abnormal ECG Confirmed by LESTER Moncada, NATIVIDAD ([id number]), index editor IRINA GALVAN ([id number]) on 05/13/2020 3:03:49 PM Referred By: Confirmed By:NATIVIDAD BATISTA M.D.
== END 2020-05-12 12:28 | DRG 871 ==
LOC: ERS 22:41 → 2NO 04-29 01:31 → T4-B 05-01 23:43
PROVIDERS: ADMIT Internal Medicine; ATTEND Internal Medicine
DX: A41.9 Sepsis, unspecified organism (principal); J18.9 Pneumonia, unspecified organism; G93.41 Metabolic encephalopathy; I21.A1 Myocardial infarction type 2; I50.43 Acute on chronic combined systolic (congestive) and diastolic (congestive) heart failure; E87.2 Acidosis; N17.9 Acute kidney failure, unspecified; I13.0 Hypertensive heart and chronic kidney disease with heart failure and stage 1 through stage 4 chronic kidney disease, or unspecified chronic kidney disease; F03.91 Unspecified dementia, unspecified severity, with behavioral disturbance; Z66 Do not resuscitate; Z51.5 Encounter for palliative care; E78.5 Hyperlipidemia, unspecified; E11.22 Type 2 diabetes mellitus with diabetic chronic kidney disease; N18.30 Chronic kidney disease, stage 3 unspecified; E87.6 Hypokalemia; R65.20 Severe sepsis without septic shock; I25.10 Atherosclerotic heart disease of native coronary artery without angina pectoris; E11.649 Type 2 diabetes mellitus with hypoglycemia without coma; R53.81 Other malaise; Z20.828 Contact with and (suspected) exposure to other viral communicable diseases; I48.0 Paroxysmal atrial fibrillation; R41.0 Disorientation, unspecified; E11.65 Type 2 diabetes mellitus with hyperglycemia; Z95.0 Presence of cardiac pacemaker; Z95.5 Presence of coronary angioplasty implant and graft; Z90.49 Acquired absence of other specified parts of digestive tract; Z85.038 Personal history of other malignant neoplasm of large intestine; Z88.0 Allergy status to penicillin; Z79.82 Long term (current) use of aspirin; Z79.899 Other long term (current) drug therapy; Z79.4 Long term (current) use of insulin; Z88.8 Allergy status to other drugs, medicaments and biological substances; Z95.1 Presence of aortocoronary bypass graft
CPT/HCPCS: 36415; 36416; 51701; 70450; 71045; 74176; 80048; 80053; 80202; 81003; 82140; 82533; 82553; 82565; 83605; 83735; 84443; 84484; 85007; 85014; 85018; 85025; 85027; 85049; 87040; 87149; 87635; 93005; 93010; 93306; 96365; 96375; J0692; J1650; J1720; J1815; J1940; J2060; J2270; J2358; J3370; J3480; J3490; J7050; S0028; U0003